=== PATIENT | female | born 1935 | race African-American/Black ===

== ENCOUNTER 2019-10-18 01:53 | Inpatient (IN) | payer MEDICARE, MEDICAID ==
[2019-10-18] VITALS (20 sets, daily range): BP systolic 108–164; BP diastolic 66–95; Ht 162.6 cm; Wt 79.1 kg
[~2019-10-18] VITALS: Ht 162.6 cm; Wt 79.1 kg
--- NOTE | ~2019-10-18 | HEMODYNAMI ---
PATIENT:ANGELINA SOLANO MEDICAL RECORD: [id number] : 36 [id number] ADMISSION DATE: 10/18/19 Generatedon:10/19/201910:54 Patient name: ANGELINA SOLANO Patient #: [id number] SSN: [id number] : 1935 Date of study: 10/19/2019 Page: Of Hemodynamic Procedure Report Patient Data Patient Demographics Procedure consent was obtained First Name: ANGELINA Gender: Female Last Name: XIOMARA : 1935 Middle Initial: M Age: 84 year(s) Patient #: [id number] Race: Black SSN: [id number] Additional ID: [id number] Contact details [address]: [address] [place] [address] State: [place] City: [place] Zip code: [address] Past Medical History Allergies Allergen Reaction Date Comments Reported Other allergy 10/19/2019 CODEINE Admission Admission Data Admission Date: 10/18/2019 Admission Time: 3:20 Arrival Date: 10/19/2019 Arrival Time: 0:00 Admit Source: Other Insurance Payor: Medicare Room #: D.CV03 [facility] #: [id number] Height (in.): 64 BSA: 1.9 (m2) Height (cm.): 162.56 BMI: 32.1 (kg/m2) Weight (lbs.): 187 Weight (kg.): 84.82 Lab Results Lab Result Date: 10/19/2019 Lab Result Time: 0:00 Biochemistry Name Units Result Min Max BUN mg/dl 29 --(----)-* 7 18 Creatinine mg/dl 1.6 --(----)-* 0.6 1.3 Creatinine l 84 --(-*--)-- 21 215 Kinase eGFR ml/min 39 *-(----)-- 90 120 AM Troponin l ng/ml 0.476 --(----)-* 0 0.06 CBC Name Units Result Min Max Hematocrit % 33.3 *-(----)-- 42 54 Hemoglobin g/dl 10.2 *-(----)-- 13.5 17.5 Procedure Procedure Types Cath Procedure Diagnostic Procedure [facility] w/Coronaries Sedation Charges Moderate Sedation up to 30 minutes Procedure Description Procedure Date Procedure Date: 10/19/2019 Procedure Start Time: 10:43 Procedure End Time: 10:51 Procedure Staff Name Function Jeremy Muniz MD Performing Physician Fabiola Reinoso RT Monitor Ledy Napoles RT Scrub Bayron Pa RN Nurse Procedure Data Cath Procedure Fluoroscopy Diagnostic fluoroscopy Total fluoroscopy Time: 1.2 time: 1.2 min min Diagnostic fluoroscopy Total fluoroscopy dose: 486 dose: 486 mGy mGy Contrast Material Contrast Material Type Amount (ml) Isovue 300 56 Entry Location Entry Primary Successful Side Size Upsize Upsize Entry Closure Succes sful Closure Location (Fr) 1 (Fr) 2 (Fr) Remarks Device Remarks Femoral Right 5 Fr Exoseal artery Estimated blood loss: 10 ml Diagnostic catheters Device Type Used For End Catheter Placement MULTIPACK JL 4.0 5Fr Procedure catheter MULTIPACK 3DRC 5Fr Procedure catheter MULTIPACK Pigtail 5 Fr Ventriculography catheter Procedure Complications No complications Procedure Medications Medication Administration Route Dosage 0.9% NaCl I.V. 10 ml/hr Oxygen 7 l/min Heparin Flush Bag added to field 2 bags (1000units/500ml NS) Lidocaine 2% added to field 20 Versed I.V. 0.5 mg Fentanyl I.V. 25 mcg Hemodynamics Rest BSA: 1.9 (m2) HGB: 10.2 (g/dl) O2 Consumption: Estimated: 186.96 (ml/min) O2 Con sumption indexed: Estimated:98.4 (ml/min/m) Heart Rate: 94 (bpm) Pressure Samples Time Site Value (mmHg) Purpose Heart Use Rate(bpm) 10:49 LV 131/2,14 Snapshot 86 10:49 LV 155/14,25 Snapshot 86 10:49 AO 151/63(100) Pullback 84 10:49 LV 150/17,30 Pullback 84 Gradients Valve Time Site 1 Site 2 Mean SEP/DFP Peak To Heart Use (mmHg) (sec/min) Peak Rate (mmHg) (bpm) Aortic 10:49 LV AO 0 12 0 84 150/17,30 151/63(100) Calculations Valve P-P Mean Valve Index Valve Source Name Gradient Area Flow (cm2) Aortic 0 0 0 0 Snapshots Pre Cath Intra NCS Post Cath Vital Signs Time Heart Resp SPO2 etCO2 NIBP (mmHg) Rhythm Pain Sedation Rate (ipm) (%) (mmHg) Status Level (bpm) 10:16:08 92 28 94 0 153/82(136) NSR 0 (11) 10(A) , No pain 10:20:35 91 32 93 0 157/84(131) NSR 0 (11) 10(A) , No pain 10:25:01 92 26 93 0 153/88(123) NSR 0 (11) 10(A) , No pain 10:29:27 91 27 94 0 154/86(121) NSR 0 (11) 10(A) , No pain 10:33:56 88 24 96 0 142/81(126) NSR 0 (11) 10(A) , No pain 10:38:20 88 27 96 0 148/76(124) NSR 0 (11) 10(A) , No pain 10:42:42 85 24 96 0 147/88(131) NSR 0 (11) 10(A) , No pain 10:47:08 93 25 94 0 146/76(122) NSR 0 (11) 10(A) , No pain 10:51:30 83 25 95 0 143/76(120) NSR 0 (11) 10(A) , No pain Medications Time Medication Route Dose Verified Delivered Reason Notes Effe ctiveness by by 10:25:28 0.9% NaCl I.V. 10 Bayron Bayron Per ml/hr Ember Pa physician RN RN 10:26:18 Oxygen high 7 Bayron Bayron for low 02 flow l/min Ember Pa sats CROW RN RN 10:26:30 Heparin Flush added 2 Bayron Bayron used for Bag to bags Ember Pa procedure (1000units/500ml field RN RN NS) 10:26:39 Lidocaine 2% added 20ml Bayron Bayron for local to vial Germaineigan Ember anesthetic field RN RN 10:39:20 Versed I.V. 0.5 Bayron Bayron for mg Ember Pa sedation RN RN 10:45:04 Fentanyl I.V. 25 Bayron Bayron for [facility] Ember Pa sedation RN director service Log Time Note 9:37:43 Informed consent obtained and on chart 9:41:18 Arrival Date: 10/19/2019 12:00:00 AM 9:41:37 Insurance Payor : Medicare 9:41:58 Patient Height : 64 inches 9:42:02 Patient Weight : 187 lbs 9:42:09 Admit Source: Other 9:44:23 Lab Result : Creatinine Kinase 84 l :44:23 Lab Result : Creatinine 1.6 mg/dl :44:23 Lab Result : BUN 29 mg/dl 9:44:23 Lab Result : Hemoglobin 10.2 g/dl :44:23 Lab Result : Hematocrit 33.3 % :44:23 Lab Result : Troponin l 0.476 ng/ml :44:23 Lab Result : eGFR AM 39 ml/min 9:44:51 Patient allergic to Other allergyCODEINE 9:45:18 Lab results completed and on chart. 9:48:16 Stress Test: no; N/A ? 9:48:21 Risk of Mortality: 11.4 9:48:25 Risk of blood transfusion: 22.3 9:48:30 Risk of MICKIE: 10.7 9:48:50 ACC Patient presents with Non-STEMI CCS Anginal Class 3--Marked limitation of physical activity, angina occurs with ordinary activity.. 9:48:59 Procedure Status Urgent Heart Cath (IP). 10:14:12 Fabiola Reinoso RT(R) sent for patient. Start room use. 10:14:27 Time tracking: Regular hours (M-F 7:00 - 5:00) 10:14:32 Plan of Care:Hemodynamics will remain stable., Cardiac rhythm will remain stable., Comfort level will be maintained., Respiratory function will remain adequate., Patient/ family verbilizes understanding of procedure., Procedure tolerated without complication., Recovers from procedure without complications.. 10:14:40 Patient received from CVICU to CCL 1 Alert and oriented. Tansferred to table in Supine position. 10:14:41 Warm blankets applied, and ashleigh hugger turned on for patient comfort. 10:14:42 Correct patient and procedure confirmed by team. 10:14:45 ECG and BP/O2 sat monitors applied to patient. 10:14:45 Vital chart was started 10:14:46 Baseline sample Acquired. 10:14:50 Rhythm: sinus rhythm 10:14:52 Full Disclosure recording started 10:15:00 H&P Date Dictated: 10/18/2019 Within 30 days and on chart.. 10:15:02 Pre-procedure instructions explained to patient. 10:15:12 Family unavailable. 10:15:18 Patient NPO since Midnight. 10:15:24 Is the patient allergic to Iodine/contrast media? No. 10:15:26 Was the patient premedicated? Yes 10:17:20 Dentures? Yes TIGHT 10:17:30 Airway obstruction? No ? 10:17:38 Patient diabetic? Yes. 10:17:50 If diabetic: On Metformin? No 10:17:58 Previous problem with sedation/anesthesia? No ? 10:18:03 Snore? Yes 10:18:25 Sleep apnea? Yes 10:18:28 Sleep apnea? No 10:18:36 Patient pain scale 0/10 ?. 10:18:50 IV patent on arrival in right hand with 0.9% NaCl at [facility]. 10:20:09 Right groin area was prepped with chlora-prep and draped in sterile fashion 10:20:10 Alarms reviewed by Emmanuel N. 10:20:11 Sharps counted by scrub and verified by R.N. 10:20:16 Physician arrived 10:25:28 0.9% NaCl 10 ml/hr I.V. was administered by Bayron Pa RN; Per physician; Verbal order read back and verified. 10:26:18 Oxygen 7 l/min high flow NC was administered by Bayron Pa RN; for low 02 sats; Verbal order read back and verified. 10:26:30 Heparin Flush Bag (1000units/500ml NS) 2 bags added to field was administered by Bayron Pa RN; used for procedure; Verbal order read back and verified. 10:26:39 Lidocaine 2% 20ml vial added to field was administered by Bayron Pa RN; for local anesthetic; Verbal order read back and verified. 10:31:43 Zero performed for pressure channel P1 10:38:37 --------ALL STOP TIME OUT------ 10:38:39 Final Timeout: patient, procedure, and site verified with staff and physician. All members of the team are in agreement. 10:38:41 Right groin site verified by team. 10:38:46 Fire Safety Assessment: A--An alcohol-based skin anteseptic being used preoperatively., C--Open oxygen or nitrous oxide is being used., D--An ESU, laser, or fiber-optic light is being used. 10:38:51 Physical assessment completed. ASA score P 3 - A patient with severe systemic disease as per Jeremy Muniz MD. 10:39:01 3b) 30-44 Moderately reduced kidney function. 10:39:07 Maximum allowable contrast dose (3.7 X eGFR X 0.75)108 ml. 10:39:12 Sedation plan: IV Moderate Sedation Medication:Versed, Fentanyl 10:39:20 Versed 0.5 mg I.V. was administered by Baryon Pa RN; for sedation; Verbal order read back and verified. 10:39:20 Use device set Femoral Dx 10:39:21 ACIST Syringe (51123) opened to sterile field. 10:39:22 Bag Decanter (2002S) opened to sterile field. 10:39:22 Medline Cath Pack ([id number]) opened to sterile field. 10:39:23 ACIST Hand Control (51818) opened to sterile field. 10:39:24 ACIST Manifold (32857) opened to sterile field. 10:39:24 DIAGNOSTIC Multipack 5Fr catheter set (RW2003) opened to sterile field. 10:39:26 SHEATH 5FR [place] (ZFS579) opened to sterile field. 10:39:27 EMERALD Guide Wire (763-720) opened to sterile field. 10:39:30 Tegaderm 4 x 4 (1626W) opened to sterile field. 10:43:29 Procedure started. 10:43:40 Local anesthetic to right femoral artery with Lidocaine 2% by Jeremy Muniz MD.INITIAL ACCESS ONLY 10:45:04 Fentanyl 25 mcg I.V. was administered by Bayron Pa RN; for sedation; Verbal order read back and verified. 10:45:04 A 5 Fr sheath was inserted into the Right Femoral artery 10:45:26 A MULTIPACK JL 4.0 5Fr catheter was advanced over the wire and used for Procedure. 10:45:32 LCA angiography performed. 10:47:01 Catheter removed. 10:47:12 A MULTIPACK 3DRC 5Fr catheter was advanced over the wire and used for Procedure. 10:47:17 RCA angiography performed. 10:48:15 Catheter removed. 10:48:26 A MULTIPACK Pigtail 5 Fr catheter was advanced over the wire and used for Ventriculography. 10:48:31 LV gram done using MAN 10:49:33 EF : 30 % 10:49:35 Catheter removed. 10:49:37 EXOSEAL 5Fr (EX500) opened to sterile field. 10:49:53 Sheath removed intact; hemostasis achieved with Exoseal to the Right Femoral artery. 10:49:56 Procedure ended.(Physican Out) 10:50:08 Fluoroscopy time 01.20 minutes. 10:50:12 Fluoroscopy dose: 486 mGy 10:50:12 Flurop Dose total: 486 10:50:22 Dose Area Product 66886 mGy/cm. 10:50:32 Contrast amount:Isovue 300 56ml. 10:50:37 Maximum allowable dose exceeded? No. 10:50:39 Sharps counted by scrub and verified by R.N. 10:50:40 Insertion/operative site no bleeding no hematoma. 10:50:44 Post right femoral artery:stable 10:50:46 Post Procedure Pulses reassessed and unchanged 10:50:53 Post-procedure physical assessment completed. ASA score P 2 - A patient with mild systemic disease as per Jeremy Muniz MD. 10:50:56 Post procedure rhythm: unchanged. 10:51:01 Estimated blood loss: 10 ml 10:51:03 Post procedure instruction explained to patient.Patient verbalizes understanding. 10:51:23 Procedure type changed to Cath procedure, Diagnostic procedure, LHC, C w/Coronaries, Sedation Charges, Moderate Sedation up to 30 minutes 10:51:24 Procedure and supply charges have been captured, reviewed, submitted and are correct. 10:51:41 Procedure Complication : No complications 10:51:43 Vital chart was stopped 10:51:45 [facility] Findings: mild to moderate CAD (<70%) 10:51:51 Report given to CVICU. 10:51:54 Patient transfered to CVICU with Bed. 10:51:58 Procedure ended. 10:51:58 Full Disclosure recording stopped 10:52:05 Post-procedure physical assessment completed. ASA score P 2 - A patient with mild systemic disease as per Jeremy Muniz MD. 10:52:06 End room use (Document Last) 10:52:29 End room use (Document Last) 10:52:57 End room use (Document Last) Device Usage Item Name Manufacture Quantity Catalog Hospital Part Current Minimal L ot# / Number Charge Number Stock Stock Serial# Code ACIST Acist 1 89167 150659 104336 [id number] 20 Syringe Medical (68993) Systems Inc Bag Microtek 1 2001S 705447 47843 531656 5 Decanter Medical Inc. () Medline Medline 1 [id number] 222102 95185 880795 5 Cath Pack ([id number]) ACIST Hand Acist 1 59526 385768 344973 213959 5 Control Medical (45285) Systems Inc ACIST Acist 1 41833 162048 935651 342698 5 Manifold Medical (21723) Systems Inc DIAGNOSTIC Cardinal 1 [id number] 697106 65321 950051 30 Multipack Health 5Fr catheter set (IT9301) SHEATH 5FR Terumo 1 YEE757 086235 436457 318446 5 [place] (OFH873) EMERALD Cardinal 1 502-455 022057 863623 145946 5 Guide Wire Health (502-455) Tegaderm 4 3M 1 1626W 142896 465376 746033 5 x 4 (1626W) MULTIPACK Cardinal 1 540729 5 JL 4.0 5Fr Health catheter MULTIPACK Cardinal 1 980849 5 3DRC 5Fr Health catheter MULTIPACK Cardinal 1 643091 5 Pigtail 5 Health Fr catheter EXOSEAL 5Fr Cardinal 1 EX500 040507 711585 972119 10 (EX500) Health Signature Audit [place] Stage Time Signature Unsigned Intra-Procedure 10/19/2019 Fabiola Reinoso 10:52:29 AM RT(R) Intra-Procedure 10/19/2019 Bayron 10:52:57 AM Ember RAMOS Intra-Procedure 10/19/2019 Jeremy Joe 10:54:36 AM Reginaldo CLEMENTS [place] [address] [address] [place] [address]
--- NOTE | 2019-10-18 03:30 | NUR ---
Received pt as a transfer from [facility] to room 2309 via ems. Attached to monitors, all are on and working correctly. No s/s of distress. Will continue to monitor.
[2019-10-18 07:37] LABS: THYROID STIMULATING HORMONE 0.58 uIU/mL (0.36-3.74)
[2019-10-18 07:44] LABS: CKMB 2.6 U/L (0.0-3.6); CREATINE KINASE 96 UL (21-215)
[2019-10-18 08:04] LABS: TROPONIN-I 0.499 ng/mL (0.000-0.060)
[2019-10-18 10:34] LABS: BASOPHILS 0 % (0-2); EOSINOPHILS 0 % (0-7); HEMATOCRIT 33.4 % (36.0-48.0); HEMOGLOBIN 10.4 g/dL (12-16); IMMATURE GRANULOCYTES 0.1 % (0-5); LYMPHOCYTES 10.3 % (15-50); MCHC 31.1 g/dL (31.0-37.0); MCV 89.8 fL (80.0-100.0); MEAN PLATELET VOLUME 11.6 fL (7.4-10.4); MONOCYTES 2.3 % (2-11); NEUTROPHILS 87.3 % (40-80); PLATELET COUNT 206 10x3/uL (130-400); RBC 3.72 10x6/uL (4.00-5.40); RDW 15.4 % (11.5-14.5); WBC 7.5 10x3/uL (4.8-10.8)
[2019-10-18 10:40] LABS: ANION GAP 13.9 mmol/L (8-16); CALCIUM 8.5 mg/dL (8.5-10.1); CARBON DIOXIDE 26.8 mmol/L (21.0-32.0); CHOL - HDL RATIO 2.9 ratio (2.3-4.1); CREATININE - SERUM 1.7 mg/dL (0.6-1.3); LDL-HDL RATIO 1.6 ratio (1.5-3.5); POTASSIUM - SERUM 4.7 mmol/L (3.5-5.1)
--- NOTE | 2019-10-18 11:12 | NUR ---
0700 AWAKE ALERT ORIENTED VOICES NO C/O PAIN ASSESSMENT COMPLETE
--- NOTE | 2019-10-18 11:14 | NUR ---
[address] LOCKHART OF CONSULT
--- NOTE | 2019-10-18 11:19 | NUR ---
1100 CONSENTS SIGNED FOR HEART CATH AND BLOOD BY PATIENT
[2019-10-18 12:54] LABS: GLUCOSE NEGATIVE (NEGATIVE); NITRITE NEGATIVE (NEGATIVE); SPECIFIC GRAVITY 1.025 (1.005-1.020)
[2019-10-18 12:55] LABS: BACTERIA FEW /hpf (NEGATIVE); BILIRUBIN NEGATIVE (NEGATIVE); EPITHELIAL CELLS RARE /hpf (0-5); KETONE NEGATIVE (NEGATIVE); RED CELLS - URINE >50 /hpf (0-5); UROBILINOGEN NORMAL (NORMAL); WHITE CELLS - URINE OCC /hpf (NEGATIVE)
[2019-10-18 12:55] LABS: CKMB 2.5 U/L (0.0-3.6); CREATINE KINASE 92 UL (21-215)
[2019-10-18 12:59] LABS: TROPONIN-I 0.506 ng/mL (0.000-0.060)
--- NOTE | 2019-10-18 14:19 | NUR ---
1340 PT RECIEVED TO CV03 ALERT AND ORIENTED VSS ATTACHED TO MONITORING EQUIPMENT AND DENIES ALL NEEDS
--- NOTE | 2019-10-18 16:55 | NUR ---
PT TO VQ SCAN
--- NOTE | 2019-10-18 17:31 | NUR ---
PT BACK FROM NUC MED
--- NOTE | 2019-10-18 19:58 | NUR ---
PT RECEIVED WITH EYES CLOSED AND CHEST RISING. ON HF N/C 6L. DENIES PAIN OR OTHER NEEDS AT THIS TIME. CALL LIGHT IN REACH. WILL CONTINUE TO OBSERVE. CALL LIGHT IN REACH. WILL CONTINUE TO OBSERVE.
[2019-10-18 20:33] LABS: CKMB 2.3 U/L (0.0-3.6); CREATINE KINASE 84 UL (21-215)
[2019-10-18 20:38] LABS: TROPONIN-I 0.476 ng/mL (0.000-0.060)
--- NOTE | 2019-10-18 21:40 | NUR ---
PT RESTING WITH EYES CLOSED AND CHEST RISING. NO S/S OF DISTRESS NOTED AT THIS TIME. PT HAS HAD A FEW SECOND RUN OF A-FIB WITH PT HAVING HISTORY. V/S STABLE AT THIS TIME. WILL CONTINUE TO OBSERVE.
--- NOTE | 2019-10-18 23:34 | NUR ---
PT RESTING WITH EYES CLOSED AND CHEST RISING. EASILY AWOKEN TO VERBAL STIMULI. NO NEEDS MADE KNOWN. WILL CONTINUE TO OBSERVE.
[2019-10-19] VITALS (24 sets, daily range): BP systolic 124–157; BP diastolic 51–85
--- NOTE | 2019-10-19 02:02 | NUR ---
PT WITH INCREASING COUGH, WHICH CAUSED TACHYCARDIC EPISODE OF 150 BPM FOR A FEW SECONDS AND STAYED GREATER THAN 11O FOR A MINUTE AND RETURNED TO NORMAL RATE OF MID 80'S TO MID 90'S. [facility] PAGED AND REPORTED TO MELVINA WOODWARD APRN, ORDERS RECEIVED FOR ROBITUSSIN 5ML AND XOPENEX 0.63 PRN. ROBITUSSIN GIVEN. PT WITH INCREASED WHEEZING NOTED AND REPORTED. PT NPO SINCE MIDNIGHT. WILL CONTNUE TO OBSERVE.
--- NOTE | 2019-10-19 03:46 | NUR ---
PT WITH EYES OPEN. V/S STABLE. NO NEEDS MADE KNOWN. CALL LIGHT IN REACH.
[2019-10-19 05:10] LABS: BASOPHILS 0.2 % (0-2); EOSINOPHILS 0.4 % (0-7); HEMATOCRIT 33.3 % (36.0-48.0); HEMOGLOBIN 10.2 g/dL (12-16); IMMATURE GRANULOCYTES 0.2 % (0-5); LYMPHOCYTES 13.9 % (15-50); MCH 28.2 pg (26.0-34.0); MCHC 30.6 g/dL (31.0-37.0); MEAN PLATELET VOLUME 10.6 fL (7.4-10.4); MONOCYTES 7.1 % (2-11); NEUTROPHILS 78.2 % (40-80); PLATELET COUNT 204 10x3/uL (130-400); RBC 3.62 10x6/uL (4.00-5.40); RDW 15.3 % (11.5-14.5)
[2019-10-19 05:20] LABS: WBC 9.8 10x3/uL (4.8-10.8)
[2019-10-19 05:38] LABS: ALBUMIN 2.3 g/dL (3.4-5.0); BILIRUBIN - TOTAL 0.83 mg/dL (0.2-1.3); CALCIUM 8.7 mg/dL (8.5-10.1); CARBON DIOXIDE 29.8 mmol/L (21.0-32.0); CREATININE - SERUM 1.6 mg/dL (0.6-1.3)
[2019-10-19 05:45] LABS: ANION GAP 10.1 mmol/L (8-16); POTASSIUM - SERUM 3.9 mmol/L (3.5-5.1)
--- NOTE | 2019-10-19 06:09 | NUR ---
PT RECEIVED CHG BATH WITH COMPLETE LINEN CHANGE AFTER BILATERAL GROIN BEING CLIPPED. PT TOLERATED WELL. PT UP IN CHAIR. CALL LIGHT IN REACH. WILL CONTINUE TO OBSERVE.
--- NOTE | 2019-10-19 07:00 | NUR ---
RECEIVED BEDSIDE REPORT ON PATIENT AND ASSUMED ARE OF PATIENT. PATIENT SITTING UP IN BEDSIDE CHAIR, VSS. PATIENT C/O SHORTNESS OF BREAT, RR 22, SPO2 99% ON 6 LPM O2 VIA HIGH FLOW NC. BBS - CLEAR DIMINISHED IN THE BASES AND SHALLOW. RT TO GIVE PATIENT PRN BREATHING TREATMENT. HR - 88 ON CM AND NSR NOTED WITHOUT ECTOPY. IV 20 GA TO RIGHT HAND, NSL, FLUSHES EASILY WITH SWAB CAP PLACED. HEAD TO TOE ASSESSMENT COMPLETED.
--- NOTE | 2019-10-19 08:16 | CN ---
PATIENT NAME:ANGELINA SOLANO MEDICAL RECORD: [id number] : 37 LOCATION:[facility].CV03 ADMIT DATE: 10/18/19 ACCOUNT: [id number] CONSULTING PHYSICIAN: RONNY GALO MD REFERRING PHYSICIAN: KANE GARCIA MD DATE OF CONSULTATION: 10/18/2019 HISTORY OF PRESENT ILLNESS: An 84-year-old lady with a history of diabetes mellitus, cardiomyopathy with diastolic dysfunction by records from [place] reports, 7-10 day history of progressive dyspnea on exertion, chest tightness and pressure accompanied last night by barbara orthopnea and PND, was seen in [place], transferred here and found to have cardiac enzymes consistent with NSTEMI. She has been diuresed, placed on afterload reduction, the symptomatology improved somewhat. We are asked to see her concerning her cardiovascular status. PAST MEDICAL HISTORY: Includes: 1. History of coronary artery disease. 2. Hypertension. 3. Hyperlipidemia. 4. Diabetes mellitus. 5. Osteoarthritis. 6. Cardiomyopathy as described above. ALLERGIES: CODEINE. SOCIAL HISTORY: Does smoke less than a pack a day, nondrinker. Needs assistance with her ADLs with overall general debility. REVIEW OF SYSTEMS: The patient reports easy bruising but reports no swollen glands. The patient reports no fever, no night sweats, no significant weight gain, no significant weight loss. No significant exercise tolerance. The patient reports no dry eyes, no irritation, no vision change. Patient reports no difficulty hearing and no ear pain. Patient reports no frequent nose bleeds or nose and sinus problems. Patient reports on arm pain on exertion. No shortness of breath while lying down. No history of heart murmur. Patient reports no cough, no wheezing or coughing up blood. Patient reports no abdominal pain, no vomiting. Normal appetite. No diarrhea and not vomiting blood. No nausea and no constipation. Patient reports no incontinence. No difficulty urinating. No hematuria. No increased frequency. Patient reports no muscle aches. No weakness, no arthralgias, no back pain. No swelling of the extremities. Patient reports no abnormal mole, no jaundice, no rashes. Reports no loss of consciousness. No weakness and no numbness. No seizures, dizziness, or headaches. The patient reports no depression, no sleep disturbance, feeling safe in a relationship and no alcohol abuse. Patient reports on fatigue. Reports no runny nose or sinus pressure. No itching, no hives, and no frequent sneezing. PHYSICAL EXAMINATION: GENERAL: Pleasant, in no acute distress, pleasantly confused. VITAL SIGNS: Blood pressure 132/83, pulse 108, frequent extrasystoles. HEENT: Normocephalic, atraumatic. NECK: No bruits noted. HEART: Regular. Extrasystoles are noted. A 2/6 systolic ejection murmur. LUNGS: Good air excursion. CONSULT REPORT [id number] ANGELINA SOLANO ABDOMEN: Soft, nontender. EXTREMITIES: Pulses are 1+ with no edema. DIAGNOSTIC DATA: EKG shows poor R-wave progression, nonspecific ST-T changes. IMPRESSION: NSTEMI. Difficult to assess currently if this is a type 1 or type 2. Given multiple risk factors, we will plan for angiography after treatment of myopathy. Intervention based on the above. TRANSINT:[id number] Voice Confirmation ID: [id number] DOCUMENT ID: [id number] RONNY GALO MD at 0816 CC: [id number] DICTATION DATE: 10/18/19 0949 INTERNAL CONTROL CONSULTANT: 10/18/19 1417 ADM IN [place] [address] [place] [address]
--- NOTE | 2019-10-19 09:10 | NUR ---
ASSISTED PATIENT TO BATHROOM, HAS MODERATE SIZE BM, SOFT AND FORMED, BROWN IN COLOR.
--- NOTE | 2019-10-19 09:53 | NUR ---
PATIENT ASSISTED BACK TO BED AND PREOP MEDS GIVEN PER ORDER.
--- NOTE | 2019-10-19 09:58 | NUR ---
PATIENT TO PANEL MACHINE OPERATOR VIA BED.
--- NOTE | 2019-10-19 11:05 | NUR ---
PATIENT BACK FROM CARGO INSPECTOR.
--- NOTE | 2019-10-19 11:05 | NUR ---
PT RECIEVED FROM SPUD GRADER VIA BED. MONITOR EQUIP ESTABLISHED. VSS. R GROIN CATH SITE CDI, NO HEMATOMA. SR PER CM. LETHARGIC. ANSWERS QUESWTIONS AND FOLLOWS COMMANDS. VOICES UNDERSTANDING OF THE NEED TO KEEP R LEG STRAIGHT.
--- NOTE | 2019-10-19 13:38 | NUR ---
PATIENT ASSISTED IN CHANGING POSITION. RIGHT GROIN DRESSING C/D/I, NO HEMATOMA NOTED, DISTAL PULSES +1.
--- NOTE | 2019-10-19 14:53 | OP ---
PATIENT NAME: ANGELINA SOLANO MEDICAL RECORD: [id number] :37 LOCATION:NICKI [facility]ados[facility]03 ADMISSION DATE:10/18/19 SURGEON: RONNY GALO MD DATE OF OPERATION: 10/19/2019 PROCEDURE: Left heart catheterization, selective coronary angiography, right femoral artery approach. CATHETERS: A 5-Kinyarwanda sheath, 5/4 left and right Sanchez, 5/4 pig. The procedure was well tolerated and the patient was returned to bacon. Sheath removed. ExoSeal device was placed. FINDINGS: Left ventriculography in 30-degree MAN view; global LV hypokinesis. Overall, LV function reduced 30% to 35%. CORONARY ANATOMY: LEFT MAIN: Left main is free of disease. LAD: Free of disease in the diagonal system. CIRCUMFLEX: Free of disease in the marginal system. RIGHT CORONARY ARTERY: Dominant artery, gives rise to PDA, free of disease. IMPRESSION: Decreased left ventricular systolic function, normal coronary anatomy. Nonischemic cardiomyopathy. We will add carvedilol, aldosterone inhibition. If creatinine tolerates, consider addition of ARB or LÓPEZ as an outpatient. TRANSINT:[id number] Voice Confirmation ID: [id number] DOCUMENT ID: [id number] RONNY GALO MD at 1453 CC: [id number] DICTATION DATE: 10/19/19 1104 IDENTIFICATION OFFICER: 10/19/19 1230 ADM IN [place] [place] [address]
--- NOTE | 2019-10-19 14:53 | EC ---
PATIENT:ANGELINA SOLANO DATE OF SERVICE: 10/18/19 SEX: F MEDICAL RECORD: [id number] DATE OF : 36 LOCATION:[place] [address] AGE OF PATIENT: 84 ADMISSION DATE: 10/18/19 REFERRING PHYSICIAN: INTERPRETING PHYSICIAN: RONNY GALO MD ECHOCARDIOGRAM REPORT ECHO CHARGES 4 ECHO COMPLETE Date: 10/18/19 CLINICAL DIAGNOSIS: NON LUIS F NH ECHOCARDIOGRAPHIC MEASUREMENTS (adult normal given) AC root (d.<3.7cm) 2.6 cm LV Septum d (<1.2 cm> 1.3 cm Valve Excursion 1.3 cm LV Septum (systole) 1.5 cm Left Atria (s.<4.0cm> 5.2 cm LVPW d(<1.2cm) 1.4 cm RV (d.<2.3cm) 4.1 cm LVPW (sytole) 1.8 cm LV diastole(<5.6CM) 5.8 cm MV E-F(>70mm/sec) cm LV systole 4.6 cm LVOT Diameter 1.7 cm MV exc.(>10mm) 1.6 cm Est.ejection fraction (50-75%) % DOPPLER: LVIT cm/sec A 78.0 cm/sec E 112.0 cm/sec LA cm/sec RVSP 24 mmHg LVOT 87 cm/sec AOP1/2T m/s Asc. Ao 158 cm/sec RVOT 63 cm/sec RA cm/sec PA 120 cm/sec AV Gradient Peak 9.95 mmHg AV Mean 5.33 mmHg AV Area 1.8 cm MV Gradient Peak 7.74 mmHg MV Mean 2.99 mmHg MV Area cm COMMENTS: News Photographer: 2 MARCELA JEFFERSON Experimental Physicist: 3 Dr. Rodriguez TAPE# PACS Pericardial Effusion N DATE OF SERVICE: Adequate 2D, color flow imaging, spectral Doppler, and M-Mode. LVH is present. LV internal dimensions are normal. LV is mildly globally hypo with reduced EF, estimated EF 40% to 45%. Aortic valve is tricuspid. No evidence of stenosis by Doppler interrogation. Left atrium is dilated at 5.2 cm. Mitral valve shows no prolapse. Trace MR. Right-sided chambers are grossly normal. Trace TR. ECHOCARDIOGRAM REPORT [id number] ANGELINA SOLANO TRANSINT:[id number] Voice Confirmation ID: [id number] DOCUMENT ID: [id number] RONNY GALO MD at 1453 CC: [id number] DICTATION DATE: 10/19/19828 HOUSEKEEPER CAREGIVER: 10/19/19 0853 ADM IN [place] [place] [address]
--- NOTE | 2019-10-19 15:00 | NUR ---
REASSESSMENT COMPLETE. VSS. RIGHT GROIN SITE SOFT, NO HEMATOMA NOTED, DRESSING C/D/I, PATIENT REQUESTS UP TO BEDSIDE CHAIR. ASSISTED TO CHAIR, SOB WITH EXERTION NOTED.
--- NOTE | 2019-10-19 19:34 | MORECARE ---
CASE MANAGEMENT DISCHARGE SUMMARY PATIENT: ANGELINA SOLANO UNIT: [id number] ADM DATE: 10/18/19 AGE: 84 : 36 SEX: F ROOM/BED: [facility] AUTHOR: LALIT MADERA PHYSICIAN: REFERRING PHYSICIAN: KANE GARCIA MD DATE OF SERVICE: 10/19/19 Discharge Plan Patient Name: ANGELINA SOLANO Facility: [facility]:[place] : 1935 Planned Disposition: Home Anticipated Discharge Date: Discharge Date: Expected LOS: Initial Reviewer: [email or web address] Initial Review Date: 10/18/2019 Generated: 10/19/19 8:33 pm DCPIA - Discharge Planning Initial Assessment Updated by [email or web address]: Sharonda Lagunas on 10/19/19 7:33 pm * Is the patient Alert and Oriented? Yes * How many steps to enter\exit or inside your home? 3-4 * PCP FAITH BERMUDEZ * Pharmacy [facility] * Preadmission Environment Home Alone * ADLs Independent * Equipment Walker * List name and contact numbers for known caregivers / representatives who currently or will assist patient after discharge: SCOTT De León [facility] - [phone] * Verbal permission to speak to the caregivers and representatives has been obtained from the patient. Yes * Community resources currently utilized Home Health * Please name any agencies selected above. [facility] * Additional services required to return to the preadmission environment? No * Can the patient safely return to the preadmission environment? Yes * Has this patient been hospitalized within the prior 30 days at any hospital? No Patient Name: ANGELINA SOLANO Page [id number] at 1934 All edits/amendments must be made on the electronic document DICTATION DATE: 10/19/191932 AUTOMATIC CHIEF: MALIA 10/19/191932 RPT#: [id number] DC DATE: STATUS: ADM IN [facility] [address] [place] [address] END OF REPORT
--- NOTE | 2019-10-19 19:47 | MORECARE ---
CASE MANAGEMENT DISCHARGE SUMMARY PATIENT: ANGELINA SOLANO UNIT: [id number] ADM DATE: 10/18/19 AGE: 84 : 36 SEX: F [facility] AUTHOR: CASSY,DOC PHYSICIAN: REFERRING PHYSICIAN: KANE GARCIA MD DATE OF SERVICE: 10/19/19 Discharge Plan Patient Name: ANGELINA SOLANO Facility: [facility]:[place] : 1935 Planned Disposition: Home Anticipated Discharge Date: Discharge Date: Expected LOS: Initial Reviewer: [email or web address] Initial Review Date: 10/18/2019 Generated: 10/19/19 8:46 pm Comments DCP- Discharge Planning Updated by [email or web address]: Sharonda Lagunas on 10/19/19 6:[address] Patient Name: ANGELINA SOLANO Admission Status: Elective Accout number: [id number] Admission Date: 10-18-2019 : 1935 Admission Diagnosis: Attending: KANE GARCIA Current LOS: 1 Anticipated DC Date: Planned Disposition: Home Primary Insurance: [facility] MEDICARE SOLUTIONS Discharge Planning Comments: CM met with patient to complete initial dc planning assessment. CM educated patient on the CM role and verbal consent given by patient to complete assessment. Patient lives at home alone where she is independent with her care. She states that she has family that lives close to her. At discharge patient plans to return home and feels this is a safe discharge. CM discussed availability of home health, rehab services, and medical equipment. Patient states she has [facility] and plans to resume care with them upon discharge. KARO signed Patient will have family to drive her home upon discharge. Patient denied known discharge needs at this time. CM will continue to follow and will assist as needed with dc plans/needs. Technical Spec: Sharonda Lagunas DCPIA - Discharge Planning Initial Assessment Updated by [email or web address]: Sharonda Lagunas on 10/19/19 7:33 pm * Is the patient Alert and Oriented? Yes * How many steps to enter\exit or inside your home? 3-4 * PCP FAITH BERMUDEZ * Pharmacy [facility] * Preadmission Environment Home Alone * ADLs Independent * Equipment Walker * List name and contact numbers for known caregivers / representatives who currently or will assist patient after discharge: SCOTT ROLLINS - [phone] * Verbal permission to speak to the caregivers and representatives has been obtained from the patient. Yes * Community resources currently utilized Home Health * Please name any agencies selected above. [facility] * Additional services required to return to the preadmission environment? No * Can the patient safely return to the preadmission environment? Yes * Has this patient been hospitalized within the prior 30 days at any hospital? No Last DP export: 10/19/19 6:34 p Patient Name: ANGELINA SOLANO Page [id number] at 1947 All edits/amendments must be made on the electronic document DICTATION DATE: 10/19/191945 GEOSPATIAL INTELLIGENCE ANALYST: MALIA 10/19/191945 RPT#: [id number] DC DATE: STATUS: ADM IN [facility] [address] [place] [address] END OF REPORT
--- NOTE | 2019-10-19 19:52 | NUR ---
PT RECEIVED UP IN CHAIR. ASSIST GIVEN TO BATHROOM WITH BM NOTED, PT FLUSHED PRIOR TO ASSESSMENT. ASSIST GIVEN TO BED PER REQUEST. WATER AND ICE PROVIDED AND IN REACH. CALL LIGHT IN REACH. WILL CONTINUE TO OBSERVE.
--- NOTE | 2019-10-19 20:33 | NUR ---
PT UNSURE OF HOME MEDICATIONS UNABLE TO COMPLETE MED REC
[2019-10-19] MEDS ORDERED: PACERONE100 MG PO (21:01)
[2019-10-19] MEDS ORDERED: ASPIRIN EC81 M1 PO (21:01)
[2019-10-19] MEDS ORDERED: PLAVIX75 MG PO (21:02)
[2019-10-19] MEDS ORDERED: CELEXA20 MG PO (21:02)
[2019-10-19] MEDS ORDERED: FUROSEMIDE40 MG PO (21:03)
[2019-10-19] MEDS ORDERED: DONEPEZIL HCL10 MG PO (21:03)
[2019-10-19] MEDS ORDERED: GABAPENTIN300 MG PO ×2 (21:04→21:05)
[2019-10-19] MEDS ORDERED: GLIMEPIRIDE4 MG PO (21:06)
[2019-10-19] MEDS ORDERED: LEVEMIR FL100 UNIT/1 SC (21:07)
[2019-10-19] MEDS ORDERED: LISINOPRIL20 MG PO (21:08)
[2019-10-19] MEDS ORDERED: K-DUR20 MEQ PO (21:09)
[2019-10-19] MEDS ORDERED: CLARITIN 10 MG10 MG PO (21:09)
[2019-10-19] MEDS ORDERED: ZOCOR20 MG PO (21:10)
[2019-10-19] MEDS ORDERED: NORVASC10 MG PO (21:11)
[2019-10-19] MEDS ORDERED: VENTOLIN HFA [SP8 GM INH (21:11)
--- NOTE | 2019-10-19 22:24 | NUR ---
PT COMPLAINING OF NOT BEING ABLE TO BREATH, RESPIRATION RATE WNL AND SPO2 95% OR GREATER. ALSO COMPLAINS OF NEUROPIC PAIN TO LEGS. PT TAKE GABAPENTIN AT HOME. CALLED [facility], REPORT TO MELVINA WOODWARD APRN. ORDERS RECEIVED AND ENTERED BY VANGIE. MEDS GIVEN TO PT, AND IS RESTING WITH EYES CLOSED AND CHEST RISING. NO S/S OF DISTRESS NOTED. WILL CONTINUE TO OBSERVE.
--- NOTE | 2019-10-19 23:13 | NUR ---
PT WITH EYES OPEN. VS WNL. DENIES ANY NEEDS AT THIS TIME. WILL CONTINUE TO OBSERVE.
[2019-10-20] VITALS (10 sets, daily range): BP systolic 131–154; BP diastolic 63–100
--- NOTE | 2019-10-20 01:22 | NUR ---
PT RESTING WITH EYES CLOSED AND CHEST RISING. NO S/S OF DISTRESS. CALL LIGHT IN REACH. WILL CONTINUE TO OBSERVE.
--- NOTE | 2019-10-20 03:18 | NUR ---
PT WITH EYES CLOSED AND CHEST RISING. NO S/S OF DISTRESS. WILL CONTINUE TO OBSERVE.
[2019-10-20 04:39] LABS: BASOPHILS 0.3 % (0-2); EOSINOPHILS 1.7 % (0-7); HEMATOCRIT 32.1 % (36.0-48.0); HEMOGLOBIN 9.7 g/dL (12-16); IMMATURE GRANULOCYTES 0.1 % (0-5); LYMPHOCYTES 16.5 % (15-50); MCH 27.8 pg (26.0-34.0); MCHC 30.2 g/dL (31.0-37.0); MEAN PLATELET VOLUME 10.7 fL (7.4-10.4); MONOCYTES 8.2 % (2-11); NEUTROPHILS 73.2 % (40-80); PLATELET COUNT 205 10x3/uL (130-400); RBC 3.49 10x6/uL (4.00-5.40)
[2019-10-20 04:42] LABS: WBC 7.1 10x3/uL (4.8-10.8)
[2019-10-20 05:12] LABS: ALBUMIN 2.1 g/dL (3.4-5.0); ANION GAP 7.7 mmol/L (8-16); BILIRUBIN - TOTAL 0.88 mg/dL (0.2-1.3); CALCIUM 8.5 mg/dL (8.5-10.1); CARBON DIOXIDE 29.6 mmol/L (21.0-32.0); CREATININE - SERUM 1.3 mg/dL (0.6-1.3); POTASSIUM - SERUM 4.3 mmol/L (3.5-5.1); PROTEIN - SERUM 5.7 g/dL (6.4-8.2)
--- NOTE | 2019-10-20 07:00 | NUR ---
UP IN CHAIR AT BEDSIDE. AWAKE AND ALERT SKIN WARM AND DRY. RIGHT GROIN DRESSING DRY AND INTACT. IV RIGHT HAND WITHOUT REDNESS OR SWELLING. SALINE LOCK. MONITOR SR. DENIES PAIN OR SHORTNESS OF BREATH. WEANING OXYGEN TURNED DOWN TO 5 LITERS FROM 8 LITERS.
--- NOTE | 2019-10-20 08:00 | NUR ---
BREAKFAST SERVED AND SET UP.
--- NOTE | 2019-10-20 09:00 | NUR ---
AMBULATED TO BATHROOM, PATIENT OXYGEN REMOVED WHEN SHE RETURNED SITTING IN CHAIR OXYGEN DROPPED TO 86%. PATIENT STARTED WHEEZING WITH SHORTNESS OF BREATH. OXYGEN APPLIED PULSE OX UP TO 97%. DECRESED OXYGEN TO 3 LITERS. SHORTNESS OF BREATH IMPROVED. NO AUDIBLE WHEEZING AT BEDSIDE NOTED. CASE MANAGEMENT NOTIFIED. PAPERWORK FILL OUT FOR HOME OXYGEN
--- NOTE | 2019-10-20 10:10 | NUR ---
sleeping in chair no distress
--- NOTE | 2019-10-20 11:27 | NUR ---
Nutrition Follow-up: Pt sleeping soundly at time of visit this AM. Chart reviewed. Noted pt ate ~90% of dinner last night. Diet: Cardiac Wt: 174# (10/18); 187.3# (10/17) Last BM: 10/18 per chart Labs noted: Glu 228, POC Glu 215, Alb 2.1 Meds noted: Protonix -Change to cardiac carb consistent. -Encourage PO intake and honor food preferences within diet restrictions. -Monitor wt. -RD following.
--- NOTE | 2019-10-20 11:30 | NUR ---
BLOOD SUGAR CHECKED. PAGED CORDWAINER TO GIVEN RESULTS OF SUGARS. AWAITING RETURN PHONE CALL. AMBULATED IN SARAH PER PHYSICAL THERAPY.
--- NOTE | 2019-10-20 12:00 | NUR ---
LUNCH TRAY SERVED AT[facility].
--- NOTE | 2019-10-20 14:00 | NUR ---
TALKING ON PHONE, WATCHING TV. NO DISTRESS.
--- NOTE | 2019-10-20 17:00 | NUR ---
Rehab Note- Acute Inpatient Rehab prescreen order received. THe patient has [facility] insurance and will require a PreAuth prior to an acute inpatient rehab stay. SHe has a pending OT Eval at this time. Will begin the PreAuth process. THank you for this referral! Milagro Maradiaga RN CLinical Liaison, [facility] Re[facility]
--- NOTE | 2019-10-20 17:13 | NUR ---
DINNER TRAY SERVED. REPORT CALLED TO DANISHA. PATIENT TO TRANSFER PER WHEELCHAIR TO ROOM 0300.
--- NOTE | 2019-10-20 18:03 | NUR ---
DAUGHTER NOTIFIED PER PHONE PATIENT TRANSFER TO ROOM 2186
--- NOTE | 2019-10-20 19:57 | NUR ---
EVENING ROUND COMPLETED. VSS, AAOX4. PT SITTING ON CHAIR. ASSIST IN TRANSFERRING PT TO BED. ZIEGLER INTACT WITH BLOODY DRAINAGE. FSBS 222. PT DENEIS ANY FURTHER NEEDS AT THIS TIME. WILL CPOC. CL WITHIN REACH, BED IN LOW, SR UP X2. ROSA ALARM ON.
[2019-10-21] VITALS: BP 120/57
--- NOTE | 2019-10-21 | NUR ---
FOUND PT SWEATING. QUICKLY ASSESSED PT'S BLOOD SUGAR LEVEL. FSBS 48. PRN DEXTROSE 25 GIVEN AT THIS TIME. CALLED AND NOTIFIED BALL ASSEMBLERLinda HEIN. BALL ASSEMBLER CHANGED PT'S INSULIN ORDER FROM INTERMEDIATE TO LOW SLIDING SCALE. PT IN NO DISTRESS AT THIS TIME. ALTHOUGH APPEARS LETHARGIC. WILL CTM.
--- NOTE | 2019-10-21 00:28 | NUR ---
ON REASSESSMENT. FSBS IS NOW 101. NO S/S OF DISTRESS. RESP 24 BPM. WILL CTM.
[2019-10-21 04:50] VITALS: BP 134/64
[2019-10-21 04:58] LABS: BASOPHILS 0.2 % (0-2); EOSINOPHILS 3.3 % (0-7); HEMATOCRIT 33.8 % (36.0-48.0); HEMOGLOBIN 10.3 g/dL (12-16); IMMATURE GRANULOCYTES 0.2 % (0-5); LYMPHOCYTES 16.8 % (15-50); MCH 28.1 pg (26.0-34.0); MCHC 30.5 g/dL (31.0-37.0); MCV 92.1 fL (80.0-100.0); MEAN PLATELET VOLUME 10.5 fL (7.4-10.4); MONOCYTES 8.6 % (2-11); NEUTROPHILS 70.9 % (40-80); PLATELET COUNT 217 10x3/uL (130-400); RBC 3.67 10x6/uL (4.00-5.40); RDW 14.6 % (11.5-14.5); WBC 6.1 10x3/uL (4.8-10.8)
[2019-10-21 05:23] LABS: ALBUMIN 2.2 g/dL (3.4-5.0); ANION GAP 8.8 mmol/L (8-16); BILIRUBIN - TOTAL 0.61 mg/dL (0.2-1.3); CALCIUM 8.5 mg/dL (8.5-10.1); CARBON DIOXIDE 30.2 mmol/L (21.0-32.0); CREATININE - SERUM 1.4 mg/dL (0.6-1.3); PROTEIN - SERUM 5.8 g/dL (6.4-8.2)
--- NOTE | 2019-10-21 06:24 | NUR ---
AC FSBC 70. OJ WITH 2 PACKS OF CANE SUGAR GIVEN. WILL NOTIFY INCOMING SHIFT NURSE. PT RESTING COMFORTABLY IN BED. AAOX3.
--- NOTE | 2019-10-21 10:08 | NUR ---
AMBULATES HALLWAY WITH ASSIST. RESP UL ON 02 3L. TELEMETRY SR. WILL CONT. PLAN OF CARE.
--- NOTE | 2019-10-21 14:00 | NUR ---
ZIEGLER CATH DCD 600CC DARK URINE OP. WILL MONITOR VOID.
[2019-10-21 14:09] VITALS: BP 131/67
--- NOTE | 2019-10-21 15:00 | NUR ---
OT NOTE: PT COMPLETED SIT TO STAND WITH SBA. PT COMPLETED SITTING BALANCE WITH SBA. PT COMPLETED FACE/HAND HYGIENE WITH SET UP. 1228-1 THANK YOU,JEANETTE MIDDLETON
--- NOTE | 2019-10-21 15:52 | MORECARE ---
CASE MANAGEMENT DISCHARGE SUMMARY PATIENT: ANGELINA SOLANO UNIT: [id number] ADM DATE: 10/18/19 AGE: 84 : 36 SEX: F ROOM/BED: D.1976 AUTHOR: CASSY,DOC PHYSICIAN: REFERRING PHYSICIAN: KANE GARCIA MD DATE OF SERVICE: 10/21/19 Discharge Plan Patient Name: ANGELINA SOLANO Facility: [facility]:[place] : 1935 Planned Disposition: Home with Home Health Anticipated Discharge Date: Discharge Date: Expected LOS: Initial Reviewer: [email or web address] Initial Review Date: 10/18/2019 Generated: 10/21/19 4:52 pm Comments DCP- Discharge Planning Updated by [email or web address]: Sharonda Lagunas on 10/19/19 6:[address] Patient Name: ANGELINA SOLANO Admission Status: Elective Accout number: [id number] Admission Date: 10-18-2019 : 1935 Admission Diagnosis: Attending: KANE GARCIA Current LOS: 1 Anticipated DC Date: Planned Disposition: Home Primary Insurance: [facility] MEDICARE SOLUTIONS Discharge Planning Comments: CM met with patient to complete initial dc planning assessment. CM educated patient on the CM role and verbal consent given by patient to complete assessment. Patient lives at home alone where she is independent with her care. She states that she has family that lives close to her. At discharge patient plans to return home and feels this is a safe discharge. CM discussed availability of home health, rehab services, and medical equipment. Patient states she has [facility] and plans to resume care with them upon discharge. KARO signed Patient will have family to drive her home upon discharge. Patient denied known discharge needs at this time. CM will continue to follow and will assist as needed with dc plans/needs. Mechanical Development Engineer: Sharonda Lagunas DCPIA - Discharge Planning Initial Assessment Updated by [email or web address]: Sharonda Lagunas on 10/19/19 7:33 pm * Is the patient Alert and Oriented? Yes * How many steps to enter\exit or inside your home? 3-4 * PCP FAITH BERMUDEZ * Pharmacy [facility] * Preadmission Environment Home Alone * ADLs Independent * Equipment Walker * List name and contact numbers for known caregivers / representatives who currently or will assist patient after discharge: SCOTT ROLLINS - [phone] * Verbal permission to speak to the caregivers and representatives has been obtained from the patient. Yes * Community resources currently utilized Home Health * Please name any agencies selected above. [facility] * Additional services required to return to the preadmission environment? No * Can the patient safely return to the preadmission environment? Yes * Has this patient been hospitalized within the prior 30 days at any hospital? No Last DP export: 10/19/19 6:47 p Patient Name: ANGELINA SOLANO Page [id number] at 1552 All edits/amendments must be made on the electronic document DICTATION DATE: 10/21/191551 ROPE RIDER: MALIA 10/21/191551 RPT#: [id number] DC DATE: STATUS: ADM IN [facility] [address] [place] [address] END OF REPORT
--- NOTE | 2019-10-21 15:59 | MORECARE ---
CASE MANAGEMENT DISCHARGE SUMMARY PATIENT: ANGELINA SOLANO UNIT: [id number] ADM DATE: 10/18/19 AGE: 84 : 36 SEX: F ROOM/BED: D.1584 AUTHOR: CASSY,DOC PHYSICIAN: REFERRING PHYSICIAN: KANE GARCIA MD DATE OF SERVICE: 10/21/19 Discharge Plan Patient Name: ANGELINA SOLANO Facility: [facility]:[place] : 1935 Planned Disposition: Home with Home Health Anticipated Discharge Date: Discharge Date: Expected LOS: Initial Reviewer: [email or web address] Initial Review Date: 10/18/2019 Generated: 10/21/19 4:59 pm Comments DCP- Discharge Planning Updated by [email or web address]: Nicolas Barrios on 10/21/19 2:[address] Patient Name: ANGELINA SOLANO Encounter No: [id number] : 1935 Primary Insurance: [facility] MEDICARE SOLUTIONS Anticipated DC Date: Planned Disposition: Home with Home Health External Planned Provider: [facility] DCP follow-up note: CM RECEIVED INPATIENT REHAB PRESCREENING ORDER, SPOKE TO PT IN ROOM REGARDING DISCHARGE NEEDS AND PLANNING; CM DISCUSSED AVAILABILITY OF REHAB SERVICES, LOCATIONS AND PROVIDERS. PT DENIES NEED, WANTS TO GO HOME INDEPENDENTLY AND RESUME HOME HEALTH WITH [facility]. PT WILL NEED MEDICAID TRANSPORT TO PICK HER UP SHE HAS NO ONE TO PICK HER UP FROM [facility]. IMPORTANT MESSAGE FROM MEDICARE PROVIDED AND EXPLAINED. PT DECLINED INPATIENT REHAB, WANTS TO GO HOME. CM TO ARRANGE RESUMPTION OF [facility] AT DISCHARGE. CM TO ARRANGE MEDICAID TRANSPORTATION FOR DISCHARGE HOME, THIS WILL NEED TO BE AN DENTURES LAB TECHNICIAN DISCHARGE OR CM WILL NEED TO KNOW OF DISCHARGE ONE DAY IN ADVANCE TO SCHEDULE DISCHARGE TRANSPORTATION. DISCHARGE ADDRESS [address] [place] [place] [address], [place] GUERRERO. Nicolas Barrios, CASE MANAGEMENT DCP- Discharge Planning Updated by [email or web address]: Sharonda Lagunas on 10/19/19 6:[address] Patient Name: ANGELINA SOLANO Admission Status: Elective Accout number: [id number] Admission Date: 10-18-2019 : 1935 Admission Diagnosis: Attending: KANE GARCIA Current LOS: 1 Anticipated DC Date: Planned Disposition: Home Primary Insurance: [facility] MEDICARE SOLUTIONS Discharge Planning Comments: CM met with patient to complete initial dc planning assessment. CM educated patient on the CM role and verbal consent given by patient to complete assessment. Patient lives at home alone where she is independent with her care. She states that she has family that lives close to her. At discharge patient plans to return home and feels this is a safe discharge. CM discussed availability of home health, rehab services, and medical equipment. Patient states she has [facility] and plans to resume care with them upon discharge. KARO signed Patient will have family to drive her home upon discharge. Patient denied known discharge needs at this time. CM will continue to follow and will assist as needed with dc plans/needs. Internal Investigator: Sharonda Lagunas DCPIA - Discharge Planning Initial Assessment Updated by [email or web address]: Sharonda Lagunas on 10/19/19 7:33 pm * Is the patient Alert and Oriented? Yes * How many steps to enter\exit or inside your home? 3-4 * PCP FAITH BERMUDEZ * Pharmacy [facility] * Preadmission Environment Home Alone * ADLs Independent * Equipment Walker * List name and contact numbers for known caregivers / representatives who currently or will assist patient after discharge: SCOTT ROLLINS - [phone] * Verbal permission to speak to the caregivers and representatives has been obtained from the patient. Yes * Community resources currently utilized Home Health * Please name any agencies selected above. [facility] * Additional services required to return to the preadmission environment? No * Can the patient safely return to the preadmission environment? Yes * Has this patient been hospitalized within the prior 30 days at any hospital? No External Providers External Provider: [facility] Next Contact Date: 10/21/2019 Service Request Date: Service Type: Resolution: Reviewer: Comments: Coverage Notice Reviewer: [id number] - Nicolas Barrios Notice Issued Date-Time: 10/21/2019 14:05 Notice Type: IM Discharge Notice Notice Delivered To: Patient Relationship to Patient: Lawyer Probate Name: Delivery Method: HAND - Hand Delivered Didi Days: Prior Verbal Notification: Recipient Understood Notice: Yes Recipient Signature: Yes Med Rec Note Co-signed by Attending: Coverage Notice Comment: Last DP export: 10/21/19 2:52 p Patient Name: ANGELINA SOLANO Page [id number] at 1559 All edits/amendments must be made on the electronic document DICTATION DATE: 10/21/191558 LAW FIRM RECEPTIONIST: MALIA 10/21/191558 RPT#: [id number] DC DATE: STATUS: ADM IN [facility] [address] [place] [address] END OF REPORT
--- NOTE | 2019-10-21 16:10 | NUR ---
HAS VOIDED POST ZIEGLER. WILL CONT. PLAN OF CARE.
[2019-10-21 17:53] VITALS: BP 166/83
[2019-10-21 20:13] VITALS: BP 135/66
--- NOTE | 2019-10-21 21:20 | NUR ---
EVENING ROUNDS COMPLETED. PT AFVSS, AAOX4, SITTING IN CHAIR. FSBS 184 LANTUS GIVEN. PT REFUSED REGULAR INSULIN DUE TO RAPID DROP LAST PM. PT REQUESTED FOR A BATH. ADJUSTER LEADER NOTIFIED. PT DENIES ANY FURTHER NEEDS AT THIS TIME. WILL CPOC. CL WITHIN REACH.
[2019-10-22 00:12] VITALS: BP 143/75
[2019-10-22 04:30] VITALS: BP 132/75
[2019-10-22 04:42] LABS: BASOPHILS 0.2 % (0-2); HEMATOCRIT 34.2 % (36.0-48.0); HEMOGLOBIN 10.5 g/dL (12-16); IMMATURE GRANULOCYTES 0.1 % (0-5); LYMPHOCYTES 35.5 % (15-50); MCH 28.3 pg (26.0-34.0); MCHC 30.7 g/dL (31.0-37.0); MCV 92.2 fL (80.0-100.0); MEAN PLATELET VOLUME 10.2 fL (7.4-10.4); MONOCYTES 7.4 % (2-11); NEUTROPHILS 50.8 % (40-80); PLATELET COUNT 243 10x3/uL (130-400); RBC 3.71 10x6/uL (4.00-5.40); RDW 14.8 % (11.5-14.5)
[2019-10-22 04:57] LABS: WBC 8.9 10x3/uL (4.8-10.8)
[2019-10-22 05:02] LABS: ALBUMIN 2.3 g/dL (3.4-5.0); BILIRUBIN - TOTAL 0.37 mg/dL (0.2-1.3); C-REACTIVE PROTEIN 4.6 mg/dL (0.0-0.9); CALCIUM 8.7 mg/dL (8.5-10.1); CARBON DIOXIDE 31.1 mmol/L (21.0-32.0); CREATININE - SERUM 1.6 mg/dL (0.6-1.3); POTASSIUM - SERUM 4.1 mmol/L (3.5-5.1); PROTEIN - SERUM 6.2 g/dL (6.4-8.2)
--- NOTE | 2019-10-22 05:30 | NUR ---
FSBS 48 ON ASSESSMENT. DEXTROSE 25ML GIVEN AT THIS TIME. WILL REASSESS.
--- NOTE | 2019-10-22 07:15 | NUR ---
RECEIVED PT SITTING IN CHAIR AAOX4 RESP UNLABORED SKIN W/D COLOR WNL DENIES ANY NEEDS OR DISCOMFORT AT THIS TIME
--- NOTE | 2019-10-22 08:28 | MORECARE ---
CASE MANAGEMENT DISCHARGE SUMMARY PATIENT: ANGELINA SOLANO UNIT: [id number] ADM DATE: 10/18/19 AGE: 84 : 36 SEX: F ROOM/BED: D.3424 AUTHOR: CASSYDOC PHYSICIAN: REFERRING PHYSICIAN: KANE GARCIA MD DATE OF SERVICE: 10/22/19 Discharge Plan Patient Name: ANGELINA SOLANO Facility: [facility]:[place] : 1935 Planned Disposition: Home with Home Health Anticipated Discharge Date: Discharge Date: Expected LOS: Initial Reviewer: [email or web address] Initial Review Date: 10/18/2019 Generated: 10/22/19 9:27 am Comments DCP- Discharge Planning Updated by [email or web address]: Nicolas Barrios on 10/21/19 2:[address] Patient Name: ANGELINA SOLANO Encounter No: [id number] : 1935 Primary Insurance: [place] MEDIC[employer] SOLUTIONS Anticipated DC Date: Planned Disposition: Home with Home Health External Planned Provider: [facility] DCP follow-up note: CM RECEIVED INPATIENT REHAB PRESCREENING ORDER, SPOKE TO PT IN ROOM REGARDING DISCHARGE NEEDS AND PLANNING; CM DISCUSSED AVAILABILITY OF REHAB SERVICES, LOCATIONS AND PROVIDERS. PT DENIES NEED, WANTS TO GO HOME INDEPENDENTLY AND RESUME HOME HEALTH WITH [facility]. PT WILL NEED MEDICAID TRANSPORT TO PICK HER UP SHE HAS NO ONE TO PICK HER UP FROM [facility]. IMPORTANT MESSAGE FROM MEDICARE PROVIDED AND EXPLAINED. PT DECLINED INPATIENT REHAB, WANTS TO GO HOME. CM TO ARRANGE RESUMPTION OF [facility] AT DISCHARGE. CM TO ARRANGE MEDICAID TRANSPORTATION FOR DISCHARGE HOME, THIS WILL NEED TO BE AN SALES TRAINING REPRESENTATIVE DISCHARGE OR CM WILL NEED TO KNOW OF DISCHARGE ONE DAY IN ADVANCE TO SCHEDULE DISCHARGE TRANSPORTATION. DISCHARGE ADDRESS [address] [place] [address], [address] [address]. Nicolas Barrios, CASE MANAGEMENT DCP- Discharge Planning Updated by [email or web address]: Sharonda Lagunas on 10/19/19 6:[address] Patient Name: ANGELINA SOLANO Admission Status: Elective Accout number: [id number] Admission Date: 10-18-2019 : 1935 Admission Diagnosis: Attending: KANE GARCIA Current LOS: 1 Anticipated DC Date: Planned Disposition: Home Primary Insurance: [place] [employer]UTIONS Discharge Planning Comments: CM met with patient to complete initial dc planning assessment. CM educated patient on the CM role and verbal consent given by patient to complete assessment. Patient lives at home alone where she is independent with her care. She states that she has family that lives close to her. At discharge patient plans to return home and feels this is a safe discharge. CM discussed availability of home health, rehab services, and medical equipment. Patient states she has [facility] and plans to resume care with them upon discharge. KARO signed Patient will have family to drive her home upon discharge. Patient denied known discharge needs at this time. CM will continue to follow and will assist as needed with dc plans/needs. E Commerce Web Developer: Sharonda Lagunas DCPIA - Discharge Planning Initial Assessment Updated by [email or web address]: Sharonda Lagunas on 10/19/19 7:33 pm * Is the patient Alert and Oriented? Yes * How many steps to enter\exit or inside your home? 3-4 * PCP FAITH BERMUDEZ * [facility] * Preadmission Environment Home Alone * ADLs Independent * Equipment Walker * List name and contact numbers for known caregivers / representatives who currently or will assist patient after discharge: SCOTT ROLLINS - [phone] * Verbal permission to speak to the caregivers and representatives has been obtained from the patient. Yes * Community resources currently utilized Home Health * Please name any agencies selected above. [facility] * Additional services required to return to the preadmission environment? No * Can the patient safely return to the preadmission environment? Yes * Has this patient been hospitalized within the prior 30 days at any hospital? No Coverage Notice Reviewer: [id number] - Nicolas Barrios Notice Issued Date-Time: 10/21/2019 14:05 Notice Type: IM Discharge Notice Notice Delivered To: Patient Relationship to Patient: Sales Closer Name: Delivery Method: HAND - Hand Delivered Didi Days: Prior Verbal Notification: Recipient Understood Notice: Yes Recipient Signature: Yes Med Rec Note Co-signed by Attending: Coverage Notice Comment: Last DP export: 10/21/19 2:59 p Patient Name: ANGELINA SOLANO Page [id number] at 0828 All edits/amendments must be made on the electronic document DICTATION DATE: 10/22/19826 PRODUCTION CHECKER: MALIA 10/22/19826 RPT#: [id number] DC DATE: STATUS: ADM IN [facility] [address] [place] [address] END OF REPORT
--- NOTE | 2019-10-22 10:04 | NUR ---
Nutrition Follow-up: Good/fair PO intake. Diet: Cardiac, Carb Consistent PO intake: 50-100% No new wt; last wt: 174# (10/18) Labs noted: Glu 46, POC Glu 164, Alb 2.3 Meds noted: Lasix, Lantus, Amaryl, Humulin, Protonix -Encourage PO intake and honor food preferences within diet restrictions. -Monitor wt. -RD following.
--- NOTE | 2019-10-22 10:10 | NUR ---
Rehab Note- Received call from Bernabe with [facility] stating that their medical equipment sales denied her an inpatient acute rehab stay. A peer to peer can be set up by contacting Bernabe to set up by Friday10/25/2019 @0626, her # is [phone]. Spoke to JEREMIE Adames to inform him & stated she was wanting to discharge home with home health. Thank you for this referral! Milagro Maradiaga RN Clinical Liaison, [facility] Rehab
[2019-10-22 10:19] VITALS: BP 117/67
--- NOTE | 2019-10-22 10:26 | NUR ---
OT NOTE: PT DOING VERY WELL TODAY. REPORTED THAT SHE FELT MUCH BETTER; AMB WITH 02 AND WALKER OVER 350 FT WITHOUT SOB OR NEED FOR REST BREAKS. ABLE TO AMB IN ROOM WITHOUT USE OF WALKER TO BATHROOM, CHAIR , ETC.. PERFORMING TOILETING, HYGIENE, AND LE DRESSING WITH SPV; NO LOB NOTED DURING ADL ACT. DANIELLE LAU, OTR/L [phone]
[2019-10-22 12:59] VITALS: BP 117/70
--- NOTE | 2019-10-22 15:37 | MORECARE ---
CASE MANAGEMENT DISCHARGE SUMMARY PATIENT: ANGELINA SOLANO UNIT: [id number] ADM DATE: 10/18/19 AGE: 84 : 36 SEX: F ROOM/BED: D.4648 AUTHOR: CASSY,DOC PHYSICIAN: REFERRING PHYSICIAN: KANE GARCIA MD DATE OF SERVICE: 10/22/19 Discharge Plan Patient Name: ANGELINA SOLANO Facility: [facility]:[place] : 1935 Planned Disposition: Home with Home Health Anticipated Discharge Date: Discharge Date: Expected LOS: Initial Reviewer: [id number] Initial Review Date: 10/18/2019 Generated: 10/22/19 4:36 pm Comments DCP- Discharge Planning Updated by [id number]: Nicolas Barrios on 10/22/19 2:[address] Patient Name: ANGELINA SOLANO Encounter No: [id number] : 1935 Primary Insurance: [facility] MEDICARE SOLUTIONS Anticipated DC Date: Planned Disposition: Home with Home Health External Planned Provider: [facility] DCP follow-up note: CM RECEIVED HOME HEALTH ORDER, CALLED [facility] IN [place], , PROVIDED REFERRAL TO [facility]. CM FAXED REFERRAL INFORMATION TO [place] AT [phone]. FOR DISCHARGE, NOTIFY [facility] AT [phone], FAX DISCHARGE INFORMATION TO [facility] IN [place] AT [phone]. CM TO ARRANGE MEDICAID TRANSPORTATION FOR DISCHARGE HOME, THIS WILL NEED TO BE AN HEALTH INFORMATION MANAGERS DISCHARGE, MEDICAID TRANSPORT DOES NOT OPERATE ON WEEKENDS. DISCHARGE ADDRESS [address] [place] [address] [place], ATILIO GUERRERO. Nicolas Barrios, CASE MANAGEMENT DCP- Discharge Planning Updated by [email or web address]: Nicolas Barrios on 10/21/19 2:[address] Patient Name: ANGELINA SOLANO Encounter No: [id number] : 1935 Primary Insurance: [facility] [employer] SOLUTIONS Anticipated DC Date: Planned Disposition: Home with Home Health External Planned Provider: [facility] DCP follow-up note: CM RECEIVED INPATIENT REHAB PRESCREENING ORDER, SPOKE TO PT IN ROOM REGARDING DISCHARGE NEEDS AND PLANNING; CM DISCUSSED AVAILABILITY OF REHAB SERVICES, LOCATIONS AND PROVIDERS. PT DENIES NEED, WANTS TO GO HOME INDEPENDENTLY AND RESUME HOME HEALTH WITH [facility]. PT WILL NEED MEDICAID TRANSPORT TO PICK HER UP SHE HAS NO ONE TO PICK HER UP FROM [facility]. IMPORTANT MESSAGE FROM MEDICARE PROVIDED AND EXPLAINED. PT DECLINED INPATIENT REHAB, WANTS TO GO HOME. CM TO ARRANGE RESUMPTION OF [facility] AT DISCHARGE. CM TO ARRANGE MEDICAID TRANSPORTATION FOR DISCHARGE HOME, THIS WILL NEED TO BE AN HEALTH INFORMATION MANAGERS DISCHARGE OR CM WILL NEED TO KNOW OF DISCHARGE ONE DAY IN ADVANCE TO SCHEDULE DISCHARGE TRANSPORTATION. DISCHARGE AD[address]ESS [id number] [place] [address], [place] GUERRERO. Nicolas Barrios, CASE MANAGEMENT DCP- Discharge Planning Updated by [email or web address]: Sharonda Lagunas on 10/19/19 6:[address] Patient Name: ANGELINA SOLANO Admission Status: Elective Accout number: [id number] Admission Date: 10-18-2019 : 1935 Admission Diagnosis: Attending: KANE GARCIA Current LOS: 1 Anticipated DC Date: Planned Disposition: Home Primary Insurance: [facility] [employer] SOLUTIONS Discharge Planning Comments: CM met with patient to complete initial dc planning assessment. CM educated patient on the CM role and verbal consent given by patient to complete assessment. Patient lives at home alone where she is independent with her care. She states that she has family that lives close to her. At discharge patient plans to return home and feels this is a safe discharge. CM discussed availability of home health, rehab services, and medical equipment. Patient states she has [facility] and plans to resume care with them upon discharge. AKRO signed Patient will have family to drive her home upon discharge. Patient denied known discharge needs at this time. CM will continue to follow and will assist as needed with dc plans/needs. Animal Rides Manager: Sharonda Lagunas DCPIA - Discharge Planning Initial Assessment Updated by [email or web address]: Sharonda Lagunas on 10/19/19 7:33 pm * Is the patient Alert and Oriented? Yes * How many steps to enter\exit or inside your home? 3-4 * PCP FAITH BERMUDEZ * Pharmacy [facility] * Preadmission Environment Home Alone * ADLs Independent * Equipment Walker * List name and contact numbers for known caregivers / representatives who currently or will assist patient after discharge: SCOTT ROLLINS - [phone] * Verbal permission to speak to the caregivers and representatives has been obtained from the patient. Yes * Community resources currently utilized Home Health * Please name any agencies selected above. [facility] * Additional services required to return to the preadmission environment? No * Can the patient safely return to the preadmission environment? Yes * Has this patient been hospitalized within the prior 30 days at any hospital? No Coverage Notice Reviewer: [id number] Genet Barrios Notice Issued Date-Time: 10/21/2019 14:05 Notice Type: IM Discharge Notice Notice Delivered To: Patient Relationship to Patient: Hat Forming Machine Feeder Name: Delivery Method: HAND - Hand Delivered Didi Days: Prior Verbal Notification: Recipient Understood Notice: Yes Recipient Signature: Yes Med Rec Note Co-signed by Attending: Coverage Notice Comment: Last DP export: 10/22/19 7:28 a Patient Name: ANGELINA SOLANO Page [id number] at 1537 All edits/amendments must be made on the electronic document DICTATION DATE: 10/22/19 1536 RESTAURANT HOST/HOSTESS: MALIA 10/22/19 1536 RPT#: [id number] DC DATE: STATUS: ADM IN [facility] [address] [place] [address] END OF REPORT
[2019-10-22 18:16] VITALS: BP 142/74
--- NOTE | 2019-10-22 19:10 | NUR ---
REPORT RECEIVED. BEDSIDE SHIFT REPORT COMPLETE. PT UP IN CHAIR TALKING ON PHONE. DENIES NEEDS AT THIS TIME. NO S/SX OF DISTRESS OBSERVED AT THIS TIME. CALL LIGHT IN REACH. WILL CTM.
[2019-10-22 20:00] VITALS: BP 127/63
[2019-10-23] VITALS: BP 141/72; BP 160/79
[2019-10-23 04:30] VITALS: BP 136/64
[2019-10-23 04:42] LABS: BASOPHILS 0.3 % (0-2); EOSINOPHILS 7.1 % (0-7); HEMATOCRIT 35.7 % (36.0-48.0); HEMOGLOBIN 10.6 g/dL (12-16); IMMATURE GRANULOCYTES 0.2 % (0-5); LYMPHOCYTES 30.4 % (15-50); MCHC 29.7 g/dL (31.0-37.0); MEAN PLATELET VOLUME 10.4 fL (7.4-10.4); MONOCYTES 9.3 % (2-11); NEUTROPHILS 52.7 % (40-80); PLATELET COUNT 255 10x3/uL (130-400); RBC 3.79 10x6/uL (4.00-5.40); RDW 15.2 % (11.5-14.5)
[2019-10-23 04:43] LABS: MCV 94.2 fL (80.0-100.0); WBC 6.6 10x3/uL (4.8-10.8)
[2019-10-23 05:01] LABS: ALBUMIN 2.4 g/dL (3.4-5.0); ANION GAP 7.5 mmol/L (8-16); BILIRUBIN - TOTAL 0.32 mg/dL (0.2-1.3); CALCIUM 8.7 mg/dL (8.5-10.1); CARBON DIOXIDE 34.6 mmol/L (21.0-32.0); CREATININE - SERUM 1.6 mg/dL (0.6-1.3); POTASSIUM - SERUM 4.1 mmol/L (3.5-5.1); PROTEIN - SERUM 6.2 g/dL (6.4-8.2)
--- NOTE | 2019-10-23 07:15 | NUR ---
RECEIVED PT SITTING IN CHAIR AAOX4 RESP UNLABORED O2 ON 3LPM HF NC SKIN W/D COLOR WNL DENIESA ANY PAIN OR NEEDS AT THIS TIME
[2019-10-23 08:21] VITALS: BP 127/59
[2019-10-23 12:58] VITALS: BP 151/73
--- NOTE | 2019-10-23 16:00 | NUR ---
ASSUMED CARE OF PATIENT. PATIENT SITTING UP TO CHAIR AT BEDSIDE. CALL LIGHT WITHIN REACH. NO DISTRESS.
[2019-10-23 17:16] VITALS: BP 100/50
--- NOTE | 2019-10-23 17:45 | NUR ---
NO DISTRESS. SR 89 ON TELEMETRY. CALL LIGHT WITHIN REACH.
--- NOTE | 2019-10-23 19:45 | NUR ---
REPORT AND INITIAL ROUNDS COMPLETED. PT SITTING UP IN BEDSIDE RECLINER TALKING ON PHONE. SEE SHIFT ASSESSMENT. CPOC.
[2019-10-23 20:00] VITALS: BP 154/76
[2019-10-24 04:00] VITALS: BP 173/74
[2019-10-24 04:47] LABS: BASOPHILS 0.1 % (0-2); HEMATOCRIT 35.1 % (36.0-48.0); HEMOGLOBIN 10.6 g/dL (12-16); IMMATURE GRANULOCYTES 0.1 % (0-5); MCH 28.2 pg (26.0-34.0); MCHC 30.2 g/dL (31.0-37.0); MCV 93.4 fL (80.0-100.0); MEAN PLATELET VOLUME 10.1 fL (7.4-10.4); MONOCYTES 9.5 % (2-11); NEUTROPHILS 47.3 % (40-80); PLATELET COUNT 259 10x3/uL (130-400); RBC 3.76 10x6/uL (4.00-5.40); RDW 15.1 % (11.5-14.5)
[2019-10-24 05:04] LABS: CALCIUM 8.9 mg/dL (8.5-10.1); CREATININE - SERUM 1.5 mg/dL (0.6-1.3); MAGNESIUM - SERUM 2.1 mg/dL (1.8-2.4)
[2019-10-24 08:08] VITALS: BP 147/76
--- NOTE | 2019-10-24 09:37 | NUR ---
PATIENT SITTING UP IN CHAIR WITH NO NEEDS VOICED. RESPIRATIONS REGULAR AND NONLABORED. ALEX HOPES TO DISCHARGE HOME TODAY. CL IN REACH
[2019-10-24 11:44] VITALS: BP 141/83
[2019-10-24] MEDS ORDERED: COREG6.25 MG PO (15:06)
[2019-10-24] MEDS ORDERED: ALDACTONE25 MG PO (15:06)
[2019-10-24] MEDS ORDERED: OMNICEF300 MG PO (15:43)
[2019-10-24] MEDS ORDERED: SYMBICORT 16010.2 GM INH (15:43)
[2019-10-24] MEDS ORDERED: DOXYCYCLINE HY100 M2 PO (15:43)
[2019-10-24 16:04] VITALS: BP 147/77
--- NOTE | 2019-10-24 18:02 | MORECARE ---
CASE MANAGEMENT DISCHARGE SUMMARY PATIENT: ANGELINA SOLANO UNIT: [id number] ADM DATE: 10/18/19 AGE: 84 : 36 SEX: F ROOM/BED: D.7774 AUTHOR: CASSY,DOC PHYSICIAN: REFERRING PHYSICIAN: KANE GARCIA MD DATE OF SERVICE: 10/24/19 Discharge Plan Patient Name: ANGELINA SOLANO Facility: [facility]:[place] : 1935 Planned Disposition: Home with Home Health Anticipated Discharge Date: Discharge Date: Expected LOS: Initial Reviewer: [id number] Initial Review Date: 10/18/2019 Generated: 10/24/19 7:01 pm Comments DCP- Discharge Planning Updated by [email or web address]: Lyly Locke on 10/24/19 4:[address] TALEND DEVELOPER ADVISED CM OF DISCHARGE AT 1545. THE PATIENT IS ON NASAL OXYGEN AT 2/L. HOME/ PORTABLE O2 TESTING ORDERED. RESPIRATORY THERAPY ADVISED RESTING ROOM AIR SAT 90%. O2 SAT ON ROOM AIR DURING EXERTION 85%. NASAL O2 AT 3/L APPLIED AND W/ EXERTION O2 SAT 93%. PATIENT WILL NEED OXYGEN TALEND DEVELOPER TO OBTAIN MD ORDER.PATIENT LIVES IN [place], [place]. NO TRANSPORTATION. TC TO [facility] AT [phone]. MAILBOX IS FULL. NO MSG CAN BE LEFT. CM CALLED TO SPEAK WITH THE PRIMARY NURSE REGARDING ADDITIONAL PHONE NUMBERS. SKYLER SOLANO - DTR - [phone] PITER BALES - GRANDDAUGHTER- [phone] EMILY PITTMANS -SISTER- [phone] JAYSON FAITH- DTR- [phone] CM CALLED SKYLER CRAIGTON- DTR- TO ADVISE OF DISCHARGE. . THEY WOULD HAVE TO FIND TRANSPORTATION. IT IS A [address] TO [place] THEN BACK TO [place] FOR A 84 YR OLD PATIENT, REACHING HOME APPROXIMATELY 2200. CM NOTIFIED PRIMARY NURSE AND TALEND DEVELOPER. THEY SPOKE W/ LIAM PALOMARES. REC CB THAT PATIENT WILL BE DISCHARGED TO HOME IN THE AM FOR SAFE DISCHARGE PLANNING CM SPOKE W/ JODY, THE FARM MECHANIC NURSE W/ [facility] [place]. ADVISED OF DISCHARGE. FAXED D/C INFORMATION TO [phone]. JODY ADVISES THERE ARE TWO DME PROVIDERS IN THE AREA FOR OXYGEN, [facility] AND [facility]. CM TO FOLLOW UP IN THE AM TO OBTAIN OXYGEN FROM PREFERRED PROVIDER. CM TELEPHONED THE DAUGHTER, MS SKYLER SOLANO AT [phone]. SHE ARRANGED FOR TRANSPORTATION IN THE AM. CM PROVIDED THE DIRECT UNIT PHONE NUMBER FOR HER TO COMMUNICATE WITH THE STAFF. DCP- Discharge Planning Updated by [id number]: Nicolas Barrios on 10/22/19 2:[address] Patient Name: ANGELINA SOLANO Encounter No: [id number] : 1935 Primary Insurance: [facility] MEDICARE SOLUTIONS Anticipated DC Date: Planned Disposition: Home with Home Health External Planned Provider: [facility] DCP follow-up note: CM RECEIVED HOME HEALTH ORDER, CALLED [facility] IN [place], , PROVIDED REFERRAL TO [facility]. CM FAXED REFERRAL INFORMATION TO [place] AT [phone]. FOR DISCHARGE, NOTIFY [facility] AT [phone], FAX DISCHARGE INFORMATION TO [facility] IN [place] AT [phone]. CM TO ARRANGE MEDICAID TRANSPORTATION FOR DISCHARGE HOME, THIS WILL NEED TO BE AN PROFESSIONAL DEVELOPMENT MANAGER DISCHARGE, MEDICAID TRANSPORT DOES NOT OPERATE ON WEEKENDS. DISCHARGE ADDRESS [address] [place] [address], [address] GU[address]. Nicolas Barrios, CASE MANAGEMENT DCP- Discharge Planning Updated by [id number]: Nicolas Barrios on 10/21/19 2:[address] Patient Name: ANGELINA SOLANO Encounter No: [id number] : 1935 Primary Insurance: [facility] MEDIC[employer] SOLUTIONS Anticipated DC Date: Planned Disposition: Home with Home Health External Planned Provider: [facility] DCP follow-up note: CM RECEIVED INPATIENT REHAB PRESCREENING ORDER, SPOKE TO PT IN ROOM REGARDING DISCHARGE NEEDS AND PLANNING; CM DISCUSSED AVAILABILITY OF REHAB SERVICES, LOCATIONS AND PROVIDERS. PT DENIES NEED, WANTS TO GO HOME INDEPENDENTLY AND RESUME HOME HEALTH WITH [facility]. PT WILL NEED MEDICAID TRANSPORT TO PICK HER UP SHE HAS NO ONE TO PICK HER UP FROM [facility]. IMPORTANT MESSAGE FROM MEDICARE PROVIDED AND EXPLAINED. PT DECLINED INPATIENT REHAB, WANTS TO GO HOME. CM TO ARRANGE RESUMPTION OF [facility] AT DISCHARGE. CM TO ARRANGE MEDICAID TRANSPORTATION FOR DISCHARGE HOME, THIS WILL NEED TO BE AN PROFESSIONAL DEVELOPMENT MANAGER DISCHARGE OR CM WILL NEED TO KNOW OF DISCHARGE ONE DAY IN ADVANCE TO SCHEDULE DISCHARGE TRANSPORTATION. DISCHARGE ADDRESS [address] [place] [address], [address] GUERRERO. Nicolas Barrios, CASE MANAGEMENT DCP- Discharge Planning Updated by [id number]: Sharonda Lagunas on 10/19/19 6:[address] Patient Name: ANGELINA SOLANO Admission Status: Elective Accout number: [id number] Admission Date: 10-18-2019 : 1935 Admission Diagnosis: Attending: KANE GARCIA Current LOS: 1 Anticipated DC Date: Planned Disposition: Home Primary Insurance: [facility] MEDIC[employer] SOLUTIONS Discharge Planning Comments: CM met with patient to complete initial dc planning assessment. CM educated patient on the CM role and verbal consent given by patient to complete assessment. Patient lives at home alone where she is independent with her care. She states that she has family that lives close to her. At discharge patient plans to return home and feels this is a safe discharge. CM discussed availability of home health, rehab services, and medical equipment. Patient states she has [facility] and plans to resume care with them upon discharge. KARO signed Patient will have family to drive her home upon discharge. Patient denied known discharge needs at this time. CM will continue to follow and will assist as needed with dc plans/needs. Vacuum Tank Tender: Sharonda Lagunas DCPIA - Discharge Planning Initial Assessment Updated by [email or web address]: Sharonda Lagunas on 10/19/19 7:33 pm * Is the patient Alert and Oriented? Yes * How many steps to enter\exit or inside your home? 3-4 * PCP FAITH BERMUDEZ * Pharmacy [facility] * Preadmission Environment Home Alone * ADLs Independent * Equipment Walker * List name and contact numbers for known caregivers / representatives who currently or will assist patient after discharge: SCOTT ROLLINS - [phone] * Verbal permission to speak to the caregivers and representatives has been obtained from the patient. Yes * Community resources currently utilized Home Health * Please name any agencies selected above. [facility] * Additional services required to return to the preadmission environment? No * Can the patient safely return to the preadmission environment? Yes * Has this patient been hospitalized within the prior 30 days at any hospital? No Coverage Notice Reviewer: [id number] Genet Barrios Notice Issued Date-Time: 10/21/2019 14:05 Notice Type: IM Discharge Notice Notice Delivered To: Patient Relationship to Patient: Creping Machine Operator Helper Name: Delivery Method: HAND - Hand Delivered Didi Days: Prior Verbal Notification: Recipient Understood Notice: Yes Recipient Signature: Yes Med Rec Note Co-signed by Attending: Coverage Notice Comment: Last DP export: 10/22/19 2:37 p Patient Name: ANGELINA SOLANO Page 28504 at 1802 All edits/amendments must be made on the electronic document DICTATION DATE: 10/24/191800 RADIOLOGIST PHYSICIAN: MALIA 10/24/191800 RPT#: [id number] DC DATE: STATUS: ADM IN [facility] [address] [place] [address] END OF REPORT
[2019-10-24 20:00] VITALS: BP 155/78
[2019-10-25] VITALS: BP 157/83
[2019-10-25 04:00] VITALS: BP 145/73
[2019-10-25 05:57] LABS: ANION GAP 9.5 mmol/L (8-16); CALCIUM 8.9 mg/dL (8.5-10.1); CARBON DIOXIDE 30.6 mmol/L (21.0-32.0); CREATININE - SERUM 1.3 mg/dL (0.6-1.3); POTASSIUM - SERUM 4.1 mmol/L (3.5-5.1)
[2019-10-25 06:17] LABS: BASOPHILS 0.2 % (0-2); EOSINOPHILS 4.2 % (0-7); HEMATOCRIT 36.7 % (36.0-48.0); IMMATURE GRANULOCYTES 0.2 % (0-5); LYMPHOCYTES 30.4 % (15-50); MCV 93.4 fL (80.0-100.0); MEAN PLATELET VOLUME 10.3 fL (7.4-10.4); MONOCYTES 7.1 % (2-11); NEUTROPHILS 57.9 % (40-80); PLATELET COUNT 281 10x3/uL (130-400); RBC 3.93 10x6/uL (4.00-5.40); RDW 15.2 % (11.5-14.5); WBC 6.2 10x3/uL (4.8-10.8)
[2019-10-25 08:40] VITALS: BP 158/83
[2019-10-25] MEDS ORDERED: AMIODARONE HCL200 MG (09:02)
[2019-10-25] MEDS ORDERED: LISINOPRIL10 MG PO (09:03)
[2019-10-25] MEDS ORDERED: COREG6.25 MG (09:04)
[2019-10-25] MEDS ORDERED: ALDACTONE25 MG PO (09:04)
[2019-10-25 10:08] LABS: ANA REFLEX - DIRECT Negative (Negative)
--- NOTE | 2019-10-25 11:03 | MORECARE ---
CASE MANAGEMENT DISCHARGE SUMMARY PATIENT: ANGELINA SOLANO UNIT: [id number] ADM DATE: 10/18/19 AGE: 84 : 36 SEX: F ROOM/BED: D.1134 AUTHOR: CASSY,DOC PHYSICIAN: REFERRING PHYSICIAN: KANE GARCIA MD DATE OF SERVICE: 10/25/19 Discharge Plan Patient Name: ANGELINA SOLANO Facility: [facility]:[place] : 1935 Planned Disposition: Home with Home Health Anticipated Discharge Date: Discharge Date: Expected LOS: Initial Reviewer: [email or web address] Initial Review Date: 10/18/2019 Generated: 10/25/19 12:02 pm Comments DCP- Discharge Planning Updated by [email or web address]: Lyly Locke on 10/24/19 4:[address] DETECTIVE HOMICIDE SQUAD ADVISED CM OF DISCHARGE AT 1545. THE PATIENT IS ON NASAL OXYGEN AT 2/L. HOME/ PORTABLE O2 TESTING ORDERED. RESPIRATORY THERAPY ADVISED RESTING ROOM AIR SAT 90%. O2 SAT ON ROOM AIR DURING EXERTION 85%. NASAL O2 AT 3/L APPLIED AND W/ EXERTION O2 SAT 93%. PATIENT WILL NEED OXYGEN DETECTIVE HOMICIDE SQUAD TO OBTAIN MD ORDER.PATIENT LIVES IN [place], [place]. NO TRANSPORTATION. TC TO [facility] AT [phone]. MAILBOX IS FULL. NO MSG CAN BE LEFT. CM CALLED TO SPEAK WITH THE PRIMARY NURSE REGARDING ADDITIONAL PHONE NUMBERS. SKYLER SOLANO - DTR - [phone] PITER BALES - GRANDDAUGHTER- [phone] EMILY PITTMANS -SISTER- [phone] JAYSON FAITH- DTR- [phone] CM CALLED SKYLER CRAIGTON- DTR- TO ADVISE OF DISCHARGE. . THEY WOULD HAVE TO FIND TRANSPORTATION. IT IS A [address] TO [place] THEN BACK TO [place] FOR A 84 YR OLD PATIENT, REACHING HOME APPROXIMATELY 2200. CM NOTIFIED PRIMARY NURSE AND DETECTIVE HOMICIDE SQUAD. THEY SPOKE W/ LIAM PALOMARES. REC CB THAT PATIENT WILL BE DISCHARGED TO HOME IN THE AM FOR SAFE DISCHARGE PLANNING CM SPOKE W/ JODY, THE FINANCIAL PLANNING ADVISER NURSE W/ [facility] [place]. ADVISED OF DISCHARGE. FAXED D/C INFORMATION TO [phone]. JODY ADVISES THERE ARE TWO DME PROVIDERS IN THE AREA FOR OXYGEN, [facility] AND [facility]. CM TO FOLLOW UP IN THE AM TO OBTAIN OXYGEN FROM PREFERRED PROVIDER. CM TELEPHONED THE DAUGHTER, MS SKYLER SOLANO AT [phone]. SHE ARRANGED FOR TRANSPORTATION IN THE AM. CM PROVIDED THE DIRECT UNIT PHONE NUMBER FOR HER TO COMMUNICATE WITH THE STAFF. DCP- Discharge Planning Updated by [email or web address]: Nicolas Barrios on 10/22/19 2:[address] Patient Name: ANGELINA SOLANO Encounter No: [id number] : 1935 Primary Insurance: [facility] MEDICARE SOLUTIONS Anticipated DC Date: Planned Disposition: Home with Home Health External Planned Provider: [facility] DCP follow-up note: CM RECEIVED HOME HEALTH ORDER, CALLED [facility] IN [place], , PROVIDED REFERRAL TO [facility]. CM FAXED REFERRAL INFORMATION TO [place] AT [phone]. FOR DISCHARGE, NOTIFY [facility] AT [phone], FAX DISCHARGE INFORMATION TO [facility] IN [place] AT [phone]. CM TO ARRANGE MEDICAID TRANSPORTATION FOR DISCHARGE HOME, THIS WILL NEED TO BE AN SPIRAL WINDER DISCHARGE, MEDICAID TRANSPORT DOES NOT OPERATE ON WEEKENDS. DISCHARGE ADDRESS [address] [place] [address], [address] GUERRERO. Nicolas Barrios, CASE MANAGEMENT DCP- Discharge Planning Updated by [id number]: Nicolas Barrios on 10/21/19 2:[address] Patient Name: ANGELINA SOLANO Encounter No: [id number] : 1935 Primary Insurance: [facility] MEDICARE SOLUTIONS Anticipated DC Date: Planned Disposition: Home with Home Health External Planned Provider: [facility] DCP follow-up note: CM RECEIVED INPATIENT REHAB PRESCREENING ORDER, SPOKE TO PT IN ROOM REGARDING DISCHARGE NEEDS AND PLANNING; CM DISCUSSED AVAILABILITY OF REHAB SERVICES, LOCATIONS AND PROVIDERS. PT DENIES NEED, WANTS TO GO HOME INDEPENDENTLY AND RESUME HOME HEALTH WITH [facility]. PT WILL NEED MEDICAID TRANSPORT TO PICK HER UP SHE HAS NO ONE TO PICK HER UP FROM [facility]. IMPORTANT MESSAGE FROM MEDICARE PROVIDED AND EXPLAINED. PT DECLINED INPATIENT REHAB, WANTS TO GO HOME. CM TO ARRANGE RESUMPTION OF [facility] AT DISCHARGE. CM TO ARRANGE MEDICAID TRANSPORTATION FOR DISCHARGE HOME, THIS WILL NEED TO BE AN SPIRAL WINDER DISCHARGE OR CM WILL NEED TO KNOW OF DISCHARGE ONE DAY IN ADVANCE TO SCHEDULE DISCHARGE TRANSPORTATION. DISCHARGE ADDRESS [address] [place] [address], [address] GUERRERO. Nicolas Barrios, CASE MANAGEMENT DCP- Discharge Planning Updated by [id number]: Sharonda Lagunas on 10/19/19 6:[address] Patient Name: ANGELINA SOLANO Admission Status: Elective Accout number: [id number] Admission Date: 10-18-2019 : 1935 Admission Diagnosis: Attending: KANE GARCIA Current LOS: 1 Anticipated DC Date: Planned Disposition: Home Primary Insurance: [facility] MEDICARE SOLUTIONS Discharge Planning Comments: CM met with patient to complete initial dc planning assessment. CM educated patient on the CM role and verbal consent given by patient to complete assessment. Patient lives at home alone where she is independent with her care. She states that she has family that lives close to her. At discharge patient plans to return home and feels this is a safe discharge. CM discussed availability of home health, rehab services, and medical equipment. Patient states she has [facility] and plans to resume care with them upon discharge. KARO signed Patient will have family to drive her home upon discharge. Patient denied known discharge needs at this time. CM will continue to follow and will assist as needed with dc plans/needs. Solderer Dipper: Sharonda Lagunas DCPIA - Discharge Planning Initial Assessment Updated by [email or web address]: Sharonda Lagunas on 10/19/19 7:33 pm * Is the patient Alert and Oriented? Yes * How many steps to enter\exit or inside your home? 3-4 * PCP FAITH BERMUDEZ * Pharmacy [facility] * Preadmission Environment Home Alone * ADLs Independent * Equipment Walker * List name and contact numbers for known caregivers / representatives who currently or will assist patient after discharge: SCOTT ROLLINS - [phone] * Verbal permission to speak to the caregivers and representatives has been obtained from the patient. Yes * Community resources currently utilized Home Health * Please name any agencies selected above. [facility] * Additional services required to return to the preadmission environment? No * Can the patient safely return to the preadmission environment? Yes * Has this patient been hospitalized within the prior 30 days at any hospital? No External Providers External Provider: [facility] Next Contact Date: 10/25/2019 Service Request Date: Service Type: Resolution: Reviewer: Comments: Coverage Notice Reviewer: [id number] Genet Valenzuela [place] Notice Issued Date-Time: 10/21/2019 14:05 Notice Type: IM Discharge Notice Notice Delivered To: Patient Relationship to Patient: Senior International Tax Manager Name: Delivery Method: HAND - Hand Delivered Didi Days: Prior Verbal Notification: Recipient Understood Notice: Yes Recipient Signature: Yes Med Rec Note Co-signed by Attending: Coverage Notice Comment: Last DP export: 10/24/19 5:02 p Patient Name: ANGELINA SOLANO Page 75394 at 1103 All edits/amendments must be made on the electronic document DICTATION DATE: 10/25/191101 ALIGNER: MALIA 10/25/19 1102 RPT#: [id number] DC DATE: STATUS: ADM IN [facility] [address] [place] [address] END OF REPORT
--- NOTE | 2019-10-25 11:09 | MORECARE ---
CASE MANAGEMENT DISCHARGE SUMMARY PATIENT: ANGELINA SOLANO UNIT: [id number] ADM DATE: 10/18/19 AGE: 84 : 36 SEX: F ROOM/BED: D.8592 AUTHOR: CASSY,DOC PHYSICIAN: REFERRING PHYSICIAN: KANE GARCIA MD DATE OF SERVICE: 10/25/19 Discharge Plan Patient Name: ANGELINA SOLANO Facility: [facility]:[place] : 1935 Planned Disposition: Home with Home Health Anticipated Discharge Date: Discharge Date: Expected LOS: Initial Reviewer: [id number] Initial Review Date: 10/18/2019 Generated: 10/25/19 12:09 pm Comments DCP- Discharge Planning Updated by [id number]: Nicolas Barrios on 10/25/19 10:[address] Patient Name: ANGELINA SOLANO Encounter No: [id number] : 1935 Primary Insurance: [facility] MEDIC[facility] SOLUTIONS Anticipated DC Date: Planned Disposition: Home with Home Health External Planned Provider: [facility] DCP follow-up note: CM RECEIVED HOME OXYGEN TESTING. MET WITH PT IN ROOM, DISCUSSED DISCHARGE PLAN, PT REPORTS HER SON IS ON THE WAY TO PICK HER UP. PT HAS NO HOME OR PORTABLE OXYGEN AT HOME. CM EXPLAINED THAT PT HAS A CHOICE OF [facility] OR [facility] FOR HER OXYGEN. PT CHOSE [facility]. CHOICE SIGNED. IMPORTANT MESSAGE FROM MEDICARE PROVIDED AND EXPLAINED. RN JEREMIE LOCKE HAS NOTIFIED [facility] IN [place], , ANDFAXED DISHCARGE INFORMATION TO [place] AT [phone] ON YESTERDAY REGARDING DISCHARGE. [facility] [place], , SPOKE TO CHICHO WHO TOOK OXYGEN ORDER, THEY DO SERVICE PT'S HOME AREA. CM FAXED REFERRAL FOR HOME AND PORTABLE OXYGEN TO [facility] AT [phone]. [facility] TO DELIVER PORTABLE OXYGEN TO PT'S ROOM FOR DISCHARGE HOME TODAY AND WILL DELIVER PORTABLE OXYGEN TO PT'S HOME AFTER HER ARRIVAL TODAY. PT REPORTS HER RIDE WILL PICK HER UP AT AROUND LUNCH TODAY. MANUFACTURING PROJECT MANAGER NURSE NOTIFED. Nicolas Barrios, CASE MANAGEMENT DCP- Discharge Planning Updated by [id number]: Lyly Locke on 10/24/19 4:[address] MANUFACTURING PROJECT MANAGER ADVISED CM OF DISCHARGE AT 1545. THE PATIENT IS ON NASAL OXYGEN AT 2/L. HOME/ PORTABLE O2 TESTING ORDERED. RESPIRATORY THERAPY ADVISED RESTING ROOM AIR SAT 90%. O2 SAT ON ROOM AIR DURING EXERTION 85%. NASAL O2 AT 3/L APPLIED AND W/ EXERTION O2 SAT 93%. PATIENT WILL NEED OXYGEN MANUFACTURING PROJECT MANAGER TO OBTAIN MD ORDER.PATIENT LIVES IN [place], [place] NO TRANSPORTATION. TC TO [facility] AT [phone]. MAILBOX IS FULL. NO MSG CAN BE LEFT. CM CALLED TO SPEAK WITH THE PRIMARY NURSE REGARDING ADDITIONAL PHONE NUMBERS. SKYLER SOLANO - DTR - [phone] PITER STANLEYDAUGHTER- [phone] EMILY VICKERS -SISTER- [phone] JAYSON CUEVAS- DTR- [phone] CM CALLED SKYLER FELIPENGTON- DTR- TO ADVISE OF DISCHARGE. . THEY WOULD HAVE TO FIND TRANSPORTATION. IT IS A TWO [address]IVE TO [place] THEN BACK TO [place] FOR A 84 YR OLD PATIENT, REACHING HOME APPROXIMATELY 2200. CM NOTIFIED PRIMARY NURSE AND MANUFACTURING PROJECT MANAGER. THEY SPOKE W/ LIAM PALOMARES. REC CB THAT PATIENT WILL BE DISCHARGED TO HOME IN THE AM FOR SAFE DISCHARGE PLANNING CM SPOKE W/ JODY, THE PLANT ETIOLOGIST NURSE W/ [facility]. ADVISED OF DISCHARGE. FAXED D/C INFORMATION TO [phone]. JODY ADVISES THERE ARE TWO DME PROVIDERS IN THE AREA FOR OXYGEN, [facility] AND [facility]. CM TO FOLLOW UP IN THE AM TO OBTAIN OXYGEN FROM PREFERRED PROVIDER. CM TELEPHONED THE DAUGHTER, MS SKYLER SOLANO AT [phone]. SHE ARRANGED FOR TRANSPORTATION IN THE AM. CM PROVIDED THE DIRECT UNIT PHONE NUMBER FOR HER TO COMMUNICATE WITH THE STAFF. DCP- Discharge Planning Updated by [id number]: Nicolas Barrios on 10/22/19 2:[address] Patient Name: ANGELINA SOLANO Encounter No: [id number] : 1935 Primary Insurance: [facility] MED[facility] SOLUTIONS Anticipated DC Date: Planned Disposition: Home with Home Health External Planned Provider: [facility] DCP follow-up note: CM RECEIVED HOME HEALTH ORDER, CALLED [facility] IN [place], , PROVIDED REFERRAL TO [facility]. CM FAXED REFERRAL INFORMATION TO [place] AT [phone]. FOR DISCHARGE, NOTIFY [facility] AT [phone], FAX DISCHARGE INFORMATION TO [facility] IN [place] AT [phone]. CM TO ARRANGE MEDICAID TRANSPORTATION FOR DISCHARGE HOME, THIS WILL NEED TO BE AN SUPERVISOR INSTRUMENT MAINTENANCE DISCHARGE, MEDICAID TRANSPORT DOES NOT OPERATE ON WEEKENDS. DISCHARGE ADDRESS [id number] [facility] [address] [place] Nicolas Barrios, CASE MANAGEMENT DCP- Discharge Planning Updated by [id number]: Nicolas Barrios on 10/21/19 2:[address] Patient Name: ANGELINA SOLANO Encounter No: [id number] : 1935 Primary Insurance: [facility] MED[facility] SOLUTIONS Anticipated DC Date: Planned Disposition: Home with Home Health External Planned Provider: [facility] DCP follow-up note: CM RECEIVED INPATIENT REHAB PRESCREENING ORDER, SPOKE TO PT IN ROOM REGARDING DISCHARGE NEEDS AND PLANNING; CM DISCUSSED AVAILABILITY OF REHAB SERVICES, LOCATIONS AND PROVIDERS. PT DENIES NEED, WANTS TO GO HOME INDEPENDENTLY AND RESUME HOME HEALTH WITH [facility]. PT WILL NEED MEDICAID TRANSPORT TO PICK HER UP SHE HAS NO ONE TO PICK HER UP FROM [facility]. IMPORTANT MESSAGE FROM MEDICARE PROVIDED AND EXPLAINED. PT DECLINED INPATIENT REHAB, WANTS TO GO HOME. CM TO ARRANGE RESUMPTION OF [facility] AT DISCHARGE. CM TO ARRANGE MEDICAID TRANSPORTATION FOR DISCHARGE HOME, THIS WILL NEED TO BE AN SUPERVISOR INSTRUMENT MAINTENANCE DISCHARGE OR CM WILL NEED TO KNOW OF DISCHARGE ONE DAY IN ADVANCE TO SCHEDULE DISCHARGE TRANSPORTATION. DISCHARGE ADDRESS [address] [facility] [address] [place] Nicloas Barrios, CASE MANAGEMENT DCP- Discharge Planning Updated by [id number]: Sharonda Lagunas on 10/19/19 6:[address] Patient Name: ANGELINA SOLANO Admission Status: Elective Accout number: [id number] Admission Date: 10-18-2019 : 1935 Admission Diagnosis: Attending: KANE GARCIA Current LOS: 1 Anticipated DC Date: Planned Disposition: Home Primary Insurance: [facility] MEDIC[facility] SOLUTIONS Discharge Planning Comments: CM met with patient to complete initial dc planning assessment. CM educated patient on the CM role and verbal consent given by patient to complete assessment. Patient lives at home alone where she is independent with her care. She states that she has family that lives close to her. At discharge patient plans to return home and feels this is a safe discharge. CM discussed availability of home health, rehab services, and medical equipment. Patient states she has [facility] and plans to resume care with them upon discharge. KARO signed Patient will have family to drive her home upon discharge. Patient denied known discharge needs at this time. CM will continue to follow and will assist as needed with dc plans/needs. Lead Solutions Architect: Sharonda Lagunas DCPIA - Discharge Planning Initial Assessment Updated by [id number]: Sharonda Lagunas on 10/19/19 7:33 pm * Is the patient Alert and Oriented? Yes * How many steps to enter\exit or inside your home? 3-4 * PCP FAITH BERMUDEZ * Pharmacy [facility] * Preadmission Environment Home Alone * ADLs Independent * Equipment Walker * List name and contact numbers for known caregivers / representatives who currently or will assist patient after discharge: SCOTT ROLLINS - [phone] * Verbal permission to speak to the caregivers and representatives has been obtained from the patient. Yes * Community resources currently utilized Home Health * Please name any agencies selected above. [facility] * Additional services required to return to the preadmission environment? No * Can the patient safely return to the preadmission environment? Yes * Has this patient been hospitalized within the prior 30 days at any hospital? No Coverage Notice Reviewer: [id number] - Nicolas Barrios Notice Issued Date-Time: 10/21/2019 14:05 Notice Type: IM Discharge Notice Notice Delivered To: Patient Relationship to Patient: Hydrogeology Professor Name: Delivery Method: HAND - Hand Delivered Didi Days: Prior Verbal Notification: Recipient Understood Notice: Yes Recipient Signature: Yes Med Rec Note Co-signed by Attending: Coverage Notice Comment: Last DP export: 10/25/19 10:03 a Patient Name: ANGELINA SOLANO Page 21012 at 1109 All edits/amendments must be made on the electronic document DICTATION DATE: 10/25/191108 SURVEY COORDINATOR: MALIA 10/25/19 110 RPT#: [id number] DC DATE: STATUS: ADM IN [facility] [address] [place] [address] END OF REPORT
--- NOTE | 2019-10-25 11:24 | MORECARE ---
CASE MANAGEMENT DISCHARGE SUMMARY PATIENT: ANGELINA SOLANO UNIT: [id number] ADM DATE: 10/18/19 AGE: 84 : 36 SEX: F ROOM/BED: D.2205 AUTHOR: CASSY,DOC PHYSICIAN: REFERRING PHYSICIAN: KANE GARCIA MD DATE OF SERVICE: 10/25/19 Discharge Plan Patient Name: ANGELINA SOLANO Facility: [facility]:[place] : 1935 Planned Disposition: Home with Home Health Anticipated Discharge Date: 10/25/19 Discharge Date: Expected LOS: 7 Initial Reviewer: [id number] Initial Review Date: 10/18/2019 Generated: 10/25/19 12:23 pm Comments DCP- Discharge Planning Updated by [id number]: Nicolas Barrios on 10/25/19 10:[address] Patient Name: ANGELINA SOLANO Encounter No: [id number] : 1935 Primary Insurance: [employer] MEDICARE SOLUTIONS Anticipated DC Date: Planned Disposition: Home with Home Health External Planned Provider: [facility] DCP follow-up note: CM RECEIVED HOME OXYGEN TESTING. MET WITH PT IN ROOM, DISCUSSED DISCHARGE PLAN, PT REPORTS HER SON IS ON THE WAY TO PICK HER UP. PT HAS NO HOME OR PORTABLE OXYGEN AT HOME. CM EXPLAINED THAT PT HAS A CHOICE OF [facility] OR [facility] FOR HER OXYGEN. PT CHOSE [facility]. CHOICE SIGNED. IMPORTANT MESSAGE FROM MEDICARE PROVIDED AND EXPLAINED. RN JEREMIE LOCKE HAS NOTIFIED [facility] IN [place], , ANDFAXED DISHCARGE INFORMATION TO [place] AT [phone] ON YESTERDAY REGARDING DISCHARGE. [facility] [place], , SPOKE TO CHICHO WHO TOOK OXYGEN ORDER, THEY DO SERVICE PT'S HOME AREA. CM FAXED REFERRAL FOR HOME AND PORTABLE OXYGEN TO [facility] AT [phone]. [facility] TO DELIVER PORTABLE OXYGEN TO PT'S ROOM FOR DISCHARGE HOME TODAY AND WILL DELIVER PORTABLE OXYGEN TO PT'S HOME AFTER HER ARRIVAL TODAY. PT REPORTS HER RIDE WILL PICK HER UP AT AROUND LUNCH TODAY. CARE TEAM COORDINATOR SCHEDULER NURSE NOTIFED. Nicolas Barrios, CASE MANAGEMENT DCP- Discharge Planning Updated by [email or web address]: Lyly Locke on 10/24/19 4:[address] CARE TEAM COORDINATOR SCHEDULER ADVISED CM OF DISCHARGE AT 1545. THE PATIENT IS ON NASAL OXYGEN AT 2/L. HOME/ PORTABLE O2 TESTING ORDERED. RESPIRATORY THERAPY ADVISED RESTING ROOM AIR SAT 90%. O2 SAT ON ROOM AIR DURING EXERTION 85%. NASAL O2 AT 3/L APPLIED AND W/ EXERTION O2 SAT 93%. PATIENT WILL NEED OXYGEN CARE TEAM COORDINATOR SCHEDULER TO OBTAIN MD ORDER.PATIENT LIVES IN [place], [place]. NO TRANSPORTATION. TC TO [facility] AT [phone]. MAILBOX IS FULL. NO MSG CAN BE LEFT. CM CALLED TO SPEAK WITH THE PRIMARY NURSE REGARDING ADDITIONAL PHONE NUMBERS. SKYLER SOLANO - DTR - [phone] PITER De [place] GRANDDAUGHTER- [phone] EMILY PITTMANS -SISTER- [phone] JAYSON CUEVAS- DTR- [phone] CM CALLED [facility]IP[facility]- DTR- TO ADVISE OF DISCHARGE. . THEY WOULD HAVE TO FIND TRANSPORTATION. IT IS A [address] TO [place] THEN BACK TO [place] FOR A 84 YR OLD PATIENT, REACHING HOME APPROXIMATELY 2200. CM NOTIFIED PRIMARY NURSE AND CARE TEAM COORDINATOR SCHEDULER. THEY SPOKE W/ LIAM PALOMARES. REC CB THAT PATIENT WILL BE DISCHARGED TO HOME IN THE AM FOR SAFE DISCHARGE PLANNING CM SPOKE W/ JODY, THE WATER[place] HARVESTING SUPERVISOR NURSE W/ [facility]. ADVISED OF DISCHARGE. FAXED D/C INFORMATION TO [phone]. JODY ADVISES THERE ARE TWO DME PROVIDERS IN THE AREA FOR OXYGEN, [facility] AND [facility]. CM TO FOLLOW UP IN THE AM TO OBTAIN OXYGEN FROM PREFERRED PROVIDER. CM TELEPHONED THE DAUGHTER, MS SKYLER SOLANO AT [phone]. SHE ARRANGED FOR TRANSPORTATION IN THE AM. CM PROVIDED THE DIRECT UNIT PHONE NUMBER FOR HER TO COMMUNICATE WITH THE STAFF. DCP- Discharge Planning Updated by [id number]: Nicolas Barrios on 10/22/19 2:[address] Patient Name: ANGELINA SOLANO Encounter No: [id number] : 1935 Primary Insurance: [facility] MEDICARE SOLUTIONS Anticipated DC Date: Planned Disposition: Home with Home Health External Planned Provider: [facility] DCP follow-up note: CM RECEIVED HOME HEALTH ORDER, CALLED [facility] IN [place], , PROVIDED REFERRAL TO [facility]. CM FAXED REFERRAL INFORMATION TO [place] AT [phone]. FOR DISCHARGE, NOTIFY [facility] AT [phone], FAX DISCHARGE INFORMATION TO [facility] IN [place] AT [phone]. CM TO ARRANGE MEDICAID TRANSPORTATION FOR DISCHARGE HOME, THIS WILL NEED TO BE AN TECHNOLOGY SOLUTIONS ARCHITECT DISCHARGE, MEDICAID TRANSPORT DOES NOT OPERATE ON WEEKENDS. DISCHARGE ADDRESS [id number] [place], [place] [address]. Nicolas Barrios, CASE MANAGEMENT DCP- Discharge Planning Updated by [id number]: Nicolas Barrios on 10/21/19 2:[address] Patient Name: ANGELINA SOLANO Encounter No: [id number] : 1935 Primary Insurance: [facility] MEDICARE [employer] Anticipated DC Date: Planned Disposition: Home with Home Health External Planned Provider: [facility] DCP follow-up note: CM RECEIVED INPATIENT REHAB PRESCREENING ORDER, SPOKE TO PT IN ROOM REGARDING DISCHARGE NEEDS AND PLANNING; CM DISCUSSED AVAILABILITY OF REHAB SERVICES, LOCATIONS AND PROVIDERS. PT DENIES NEED, WANTS TO GO HOME INDEPENDENTLY AND RESUME HOME HEALTH WITH [facility]. PT WILL NEED MEDICAID TRANSPORT TO PICK HER UP SHE HAS NO ONE TO PICK HER UP FROM [facility]. IMPORTANT MESSAGE FROM MEDICARE PROVIDED AND EXPLAINED. PT DECLINED INPATIENT REHAB, WANTS TO GO HOME. CM TO ARRANGE RESUMPTION OF [facility] AT DISCHARGE. CM TO ARRANGE MEDICAID TRANSPORTATION FOR DISCHARGE HOME, THIS WILL NEED TO BE AN TECHNOLOGY SOLUTIONS ARCHITECT DISCHARGE OR CM WILL NEED TO KNOW OF DISCHARGE ONE DAY IN ADVANCE TO SCHEDULE DISCHARGE TRANSPORTATION. [place]ESS [id number] [address] [place] Nicolas Barrios, CASE MANAGEMENT DCP- Discharge Planning Updated by [email or web address]: Sharonda Lgaunas on 10/19/19 6:[address] Patient Name: ANGELINA SOLANO Admission Status: Elective Accout number: [id number] Admission Date: 10-18-2019 : 1935 Admission Diagnosis: Attending: KANE GARCIA Current LOS: 1 Anticipated DC Date: Planned Disposition: Home Primary Insurance: [facility] MEDICARE SOLUTIONS Discharge Planning Comments: CM met with patient to complete initial dc planning assessment. CM educated patient on the CM role and verbal consent given by patient to complete assessment. Patient lives at home alone where she is independent with her care. She states that she has family that lives close to her. At discharge patient plans to return home and feels this is a safe discharge. CM discussed availability of home health, rehab services, and medical equipment. Patient states she has [facility] and plans to resume care with them upon discharge. KARO signed Patient will have family to drive her home upon discharge. Patient denied known discharge needs at this time. CM will continue to follow and will assist as needed with dc plans/needs. Tassel Clipper: Sharonda Lagunas DCPIA - Discharge Planning Initial Assessment Updated by [id number]: Sharonda Lagunas on 10/19/19 7:33 pm * Is the patient Alert and Oriented? Yes * How many steps to enter\exit or inside your home? 3-4 * PCP FAITH BERMUDEZ * Pharmacy [facility] * Preadmission Environment Home Alone * ADLs Independent * Equipment Walker * List name and contact numbers for known caregivers / representatives who currently or will assist patient after discharge: SCOTT ROLLINS - [phone] * Verbal permission to speak to the caregivers and representatives has been obtained from the patient. Yes * Community resources currently utilized Home Health * Please name any agencies selected above. [facility] * Additional services required to return to the preadmission environment? No * Can the patient safely return to the preadmission environment? Yes * Has this patient been hospitalized within the prior 30 days at any hospital? No Coverage Notice Reviewer: [id number] Barrios Notice Issued Date-Time: 10/21/2019 14:05 Notice Type: IM Discharge Notice Notice Delivered To: Patient Relationship to Patient: Clin Nurse Name: Delivery Method: HAND - Hand Delivered Didi Days: Prior Verbal Notification: Recipient Understood Notice: Yes Recipient Signature: Yes Med Rec Note Co-signed by Attending: Coverage Notice Comment: Reviewer: [id number] Barrios Notice Issued Date-Time: 10/25/2019 10:00 Notice Type: IM Discharge Notice Notice Delivered To: Patient Relationship to Patient: Clin Nurse Name: Delivery Method: HAND - Hand Delivered Didi Days: Prior Verbal Notification: Recipient Understood Notice: Yes Recipient Signature: Yes Med Rec Note Co-signed by Attending: Coverage Notice Comment: Reviewer: [id number] - Nicolas Barrios Notice Issued Date-Time: 10/25/2019 10:00 Notice Type: Patient Choice Letter Notice Delivered To: Patient Relationship to Patient: Clin Nurse Name: Delivery Method: HAND - Hand Delivered Didi Days: Prior Verbal Notification: Recipient Understood Notice: Yes Recipient Signature: Yes Med Rec Note Co-signed by Attending: Coverage Notice Comment: FRANCIS Greenberg DP export: 10/25/19 10:09 a Patient Name: ANGELINA SOLANO Page 50452 at 1124 All edits/amendments must be made on the electronic document DICTATION DATE: 10/25/191122 SENIOR SYSTEMS ANALYST: MALIA 10/25/191122 RPT#: [id number] DC DATE: STATUS: ADM IN [facility] [address] [place] [address] END OF REPORT
--- NOTE | 2019-10-25 11:49 | NUR ---
IV AND TELEMETRY DCD. DC PLANS GIVEN. UNDERSTANDING VOICED. WAITING ON AND RIDE.
--- NOTE | 2019-10-25 14:30 | NUR ---
02 DELIVERED. ESCORTED TO CAR BY W/C.
--- NOTE | 2019-10-25 15:13 | MORECARE ---
CASE MANAGEMENT DISCHARGE SUMMARY PATIENT: ANGELINA SOLANO UNIT: [id number] ADM DATE: 10/18/19 AGE: 84 : 36 SEX: F ROOM/BED: D.9332 AUTHOR: CASSY,DOC PHYSICIAN: REFERRING PHYSICIAN: KANE GARCIA MD DATE OF SERVICE: 10/25/19 Discharge Plan Patient Name: ANGELINA SOLANO Facility: [facility]:[place] : 1935 Planned Disposition: Home with Home Health Anticipated Discharge Date: 10/25/19 Discharge Date: 10/25/2019 Expected LOS: 7 Initial Reviewer: [id number] Initial Review Date: 10/18/2019 Generated: 10/25/19 4:12 pm Comments DCP- Discharge Planning Updated by [id number]: Nicolas Barrios on 10/25/19 10:[address] Patient Name: ANGELINA SOLANO Encounter No: [id number] : 1935 Primary Insurance: [employer] Anticipated DC Date: Planned Disposition: Home with Home Health External Planned Provider: [facility] DCP follow-up note: CM RECEIVED HOME OXYGEN TESTING. MET WITH PT IN ROOM, DISCUSSED DISCHARGE PLAN, PT REPORTS HER SON IS ON THE WAY TO PICK HER UP. PT HAS NO HOME OR PORTABLE OXYGEN AT HOME. CM EXPLAINED THAT PT HAS A CHOICE OF [facility] OR [facility]PPLY FOR HER OXYGEN. PT CHOSE [facility]. CHOICE SIGNED. IMPORTANT MESSAGE FROM MEDICARE PROVIDED AND EXPLAINED. RN JEREMIE LOCKE HAS NOTIFIED [facility] IN [place], , ANDFAXED DISHCARGE INFORMATION TO [place] AT [phone] ON YESTERDAY REGARDING DISCHARGE. JEREMIE CALLED [facility] IN [place], , SPOKE TO CHICHO WHO TOOK OXYGEN ORDER, THEY DO SERVICE PT'S HOME AREA. CM FAXED REFERRAL FOR HOME AND PORT[facility] OXYGEN [facility] AT [phone]. [facility] TO DELIVER PORTABLE OXYGEN TO PT'S ROOM FOR DISCHARGE HOME TODAY AND WILL DELIVER PORTABLE OXYGEN TO PT'S HOME AFTER HER ARRIVAL TODAY. PT REPORTS HER RIDE WILL PICK HER UP AT [facility] TODAY. RESORT HOST NURSE NOTIFED. Nicolas Barrios, CASE MANAGEMENT DCP- Discharge Planning Updated by [id number]: Lyly Locke on 10/24/19 4:[address] RESORT HOST ADVISED CM OF DISCHARGE AT 1545. THE PATIENT IS ON NASAL OXYGEN AT 2/L. HOME/ PORTABLE O2 TESTING ORDERED. RESPIRATORY THERAPY ADVISED RESTING ROOM AIR SAT 90%. O2 SAT ON ROOM AIR DURING EXERTION 85%. NASAL O2 AT 3/L APPLIED AND W/ EXERTION O2 SAT 93%. PATIENT WILL NEED OXYGEN RESORT HOST TO OBTAIN MD ORDER.PATIENT LIVES IN [place], [place] NO TRANSPORTATION. TC TO JAYSON CUEVAS AT [phone]. MAILBOX IS FULL. NO MSG CAN BE LEFT. CM CALLED TO SPEAK WITH THE PRIMARY NURSE REGARDING ADDITIONAL PHONE NUMBERS. SKYLER SOLANO - DTR - [phone] PITER De León GRANDDAUGHTER- [phone] EMILY VICKERS -SISTER- [phone] JAYSON CUEVAS- DTR- [phone] CM CALLED SKYLER FELIPENGTON- DTR- TO ADVISE OF DISCHARGE. . THEY WOULD HAVE TO FIND TRANSPORTATION. IT IS A TWO HOUR DRIVE TO [place] THEN BACK TO [place] FOR A 84 YR OLD PATIENT, REACHING HOME APPROXIMATELY 2200. CM NOTIFIED PRIMARY NURSE AND RESORT HOST. THEY SPOKE W/ LIAM PALOMARES. REC CB THAT PATIENT WILL BE DISCHARGED TO HOME IN THE AM FOR SAFE DISCHARGE PLANNING CM SPOKE W/ JODY, THE LICENSED PROFESSIONAL COUNSELOR NURSE W/ [facility]. ADVISED OF DISCHARGE. FAXED D/C INFORMATION TO [phone]. JODY ADVISES THERE ARE TWO DME PROVIDERS IN THE AREA FOR OXYGEN, [facility] AND [facility]. CM TO FOLLOW UP IN THE AM TO OBTAIN OXYGEN FROM PREFERRED PROVIDER. CM TELEPHONED THE DAUGHTER, MS SKYLER SOLANO AT [phone]. SHE ARRANGED FOR TRANSPORTATION IN THE AM. CM PROVIDED THE DIRECT UNIT PHONE NUMBER FOR HER TO COMMUNICATE WITH THE STAFF. DCP- Discharge Planning Updated by [id number]: Nicolas Barrios on 10/22/19 2:[address] Patient Name: ANGELINA SOLANO Encounter No: [id number] : 1935 Primary Insurance: [facility] MEDICARE SOLUTIONS Anticipated DC Date: Planned Disposition: Home with Home Health External Planned Provider: [facility] DCP follow-up note: CM RECEIVED HOME HEALTH ORDER, CALLED [facility] IN [place], , PROVIDED REFERRAL TO [place]. CM FAXED REFERRAL INFORMATION TO [place] AT [phone]. FOR DISCHARGE, NOTIFY [facility] AT [phone], FAX DISCHARGE INFORMATION TO [facility] IN [place] AT [phone]. CM TO ARRANGE MEDICAID TRANSPORTATION FOR DISCHARGE HOME, THIS WILL NEED TO BE AN LAP LAYER DISCHARGE, MEDICAID TRANSPORT DOES NOT OPERATE ON WEEKENDS. [place] [id number] [address] [place] Nicolas Barrios, CASE MANAGEMENT DCP- Discharge Planning Updated by [id number]: Nicolas Barrios on 10/21/19 2:[address] Patient Name: ANGELINA SOLANO Encounter No: [id number] : 1935 Primary Insurance: [facility] MEDICARE SOLUTIONS Anticipated DC Date: Planned Disposition: Home with Home Health External Planned Provider: [facility] DCP follow-up note: CM RECEIVED INPATIENT REHAB PRESCREENING ORDER, SPOKE TO PT IN ROOM REGARDING DISCHARGE NEEDS AND PLANNING; CM DISCUSSED AVAILABILITY OF REHAB SERVICES, LOCATIONS AND PROVIDERS. PT DENIES NEED, WANTS TO GO HOME INDEPENDENTLY AND RESUME HOME HEALTH WITH [facility]. PT WILL NEED MEDICAID TRANSPORT TO PICK HER UP SHE HAS NO ONE TO PICK HER UP FROM [facility]. IMPORTANT MESSAGE FROM MEDICARE PROVIDED AND EXPLAINED. PT DECLINED INPATIENT REHAB, WANTS TO GO HOME. CM TO ARRANGE RESUMPTION OF [facility] AT DISCHARGE. CM TO ARRANGE MEDICAID TRANSPORTATION FOR DISCHARGE HOME, THIS WILL NEED TO BE AN LAP LAYER DISCHARGE OR CM WILL NEED TO KNOW OF DISCHARGE ONE DAY IN ADVANCE TO SCHEDULE DISCHARGE TRANSPORTATION. [place] [id number] [facility] [address] [place] Nicolas Barrios, CASE MANAGEMENT DCP- Discharge Planning Updated by [id number]: Sharonda Lagunas on 10/19/19 6:[address] Patient Name: ANGELINA SOLANO Admission Status: Elective Accout number: [id number] Admission Date: 10-18-2019 : 1935 Admission Diagnosis: Attending: KANE GARCIA Current LOS: 1 Anticipated DC Date: Planned Disposition: Home Primary Insurance: [facility] MEDICARE SOLUTIONS Discharge Planning Comments: CM met with patient to complete initial dc planning assessment. CM educated patient on the CM role and verbal consent given by patient to complete assessment. Patient lives at home alone where she is independent with her care. She states that she has family that lives close to her. At discharge patient plans to return home and feels this is a safe discharge. CM discussed availability of home health, rehab services, and medical equipment. Patient states she has [facility] and plans to resume care with them upon discharge. KARO signed Patient will have family to drive her home upon discharge. Patient denied known discharge needs at this time. CM will continue to follow and will assist as needed with dc plans/needs. Shoe Stamper: Sharonda Lagunas DCPIA - Discharge Planning Initial Assessment Updated by [id number]: Sharonda Lagunas on 10/19/19 7:33 pm * Is the patient Alert and Oriented? Yes * How many steps to enter\exit or inside your home? 3-4 * PCP FAITH BERMUDEZ * Pharmacy [facility] * Preadmission Environment Home Alone * ADLs Independent * Equipment Walker * List name and contact numbers for known caregivers / representatives who currently or will assist patient after discharge: SCOTT ROLLINS - [phone] * Verbal permission to speak to the caregivers and representatives has been obtained from the patient. Yes * Community resources currently utilized Home Health * Please name any agencies selected above. [facility] * Additional services required to return to the preadmission environment? No * Can the patient safely return to the preadmission environment? Yes * Has this patient been hospitalized within the prior 30 days at any hospital? No Coverage Notice Reviewer: [id number] Genet Barrios Notice Issued Date-Time: 10/21/2019 14:05 Notice Type: IM Discharge Notice Notice Delivered To: Patient Relationship to Patient: Lift Truck Mechanic Name: Delivery Method: HAND - Hand Delivered Didi Days: Prior Verbal Notification: Recipient Understood Notice: Yes Recipient Signature: Yes Med Rec Note Co-signed by Attending: Coverage Notice Comment: Reviewer: [email or web address] Genet Barrios Notice Issued Date-Time: 10/25/2019 10:00 Notice Type: IM Discharge Notice Notice Delivered To: Patient Relationship to Patient: Lift Truck Mechanic Name: Delivery Method: HAND - Hand Delivered Didi Days: Prior Verbal Notification: Recipient Understood Notice: Yes Recipient Signature: Yes Med Rec Note Co-signed by Attending: Coverage Notice Comment: Reviewer: [id number] - Nicolas Barrios Notice Issued Date-Time: 10/25/2019 10:00 Notice Type: Patient Choice Letter Notice Delivered To: Patient Relationship to Patient: Lift Truck Mechanic Name: Delivery Method: HAND - Hand Delivered Didi Days: Prior Verbal Notification: Recipient Understood Notice: Yes Recipient Signature: Yes Med Rec Note Co-signed by Attending: Coverage Notice Comment: FRANCIS Greenberg DP export: 10/25/19 10:24 a Patient Name: ANGELINA SOLANO Page [id number] at 1513 All edits/amendments must be made on the electronic document DICTATION DATE: 10/25/191511 REGISTRAR MUSEUM: MALIA 10/25/191511 RPT#: [id number] DC DATE:10/25/19 STATUS: DIS IN [facility] [address] [place] [address] END OF REPORT
== END 2019-10-25 14:31 | disposition home health service (06) | DRG 280 ==
LOC: D.MS 01:53 → D.ICU 03:20 → D.CVICU 03:20 → D.M2 03:20 → D.MS 03:55 → D.CVICU 13:28 → D.M2 10-20 17:29
PROVIDERS: Emergency Medicine; Internal Medicine Interventional Cardiology; Internal Medicine Pulmonary Disease; ADMIT Internal Medicine Nephrology; ATTEND Internal Medicine Nephrology
PROC: B2151ZZ Fluoroscopy of Left Heart using Low Osmolar Contrast (ICD-10-PCS; 2019-10-19)
PROC: 4A023N7 Measurement of Cardiac Sampling and Pressure, Left Heart, Percutaneous Approach (ICD-10-PCS; 2019-10-19)
PROC: B2111ZZ Fluoroscopy of Multiple Coronary Arteries using Low Osmolar Contrast (ICD-10-PCS; principal; 2019-10-19 10:14)
DX: I21.A1 Myocardial infarction type 2 (principal); J96.01 Acute respiratory failure with hypoxia; I50.33 Acute on chronic diastolic (congestive) heart failure; J18.9 Pneumonia, unspecified organism; I13.0 Hypertensive heart and chronic kidney disease with heart failure and stage 1 through stage 4 chronic kidney disease, or unspecified chronic kidney disease; N18.4 Chronic kidney disease, stage 4 (severe); N17.9 Acute kidney failure, unspecified; I42.9 Cardiomyopathy, unspecified; E11.22 Type 2 diabetes mellitus with diabetic chronic kidney disease; E78.5 Hyperlipidemia, unspecified; M19.90 Unspecified osteoarthritis, unspecified site; F17.200 Nicotine dependence, unspecified, uncomplicated; F03.90 Unspecified dementia, unspecified severity, without behavioral disturbance, psychotic disturbance, mood disturbance, and anxiety; I48.0 Paroxysmal atrial fibrillation; D63.1 Anemia in chronic kidney disease